=== PATIENT | male | born 1955 | race Caucasian/White ===

== ENCOUNTER → 2017-08-08 14:24 | Outpatient (CLI) | payer OTHER, SELFPAY ==
[2017-08-08 15:48] LABS: PSA,Total - Annual Screen 1.96 ng/mL (0.00-4.00)
== END ==
PROVIDERS: Family Provider Family Medicine; PCP Family Medicine; Visit Provider Family Medicine
DX: N40.0 Benign prostatic hyperplasia without lower urinary tract symptoms (principal); E34.9 Endocrine disorder, unspecified
CPT/HCPCS: 36415; 84153; 84403; G0103

== ENCOUNTER → 2018-03-01 09:15 | Outpatient (CLI) | payer OTHER, SELFPAY ==
[2018-03-01 13:44] LABS: PSA,Total- Diagnostic 2.11 ng/mL (0.0-4.0)
--- OUTSIDE RECORDS SUMMARY | 2018-04-17 05:26 | XMS RPT_ITS ---
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 Values obtained with different assay methods cannot be used interchangably. When changing PSA assays in the course of monitoring a patient, additional sequential testing should be carried out to confirm baseline values. Performed By: #### L501.9940 #### [facility] [address] [place], [address] PSA,TOTAL - ANNUAL Collected: 08/08/2017 Status: F Source: [facility] SCREEN 2:28 PM [facility] [place] TYPE CODE TESTS RESULT OUT OF RANGE REFERENCE UNITS LAB L501.9910 0.00-4.00 ng/mL Normal PSA,TOT 1.96 SCREEN Result Comment: This test was performed using the TPSA assay method for the [employer] chemistry system. Values obtained with different assay methods cannot be used interchangably. When changing PSA assays in the course of monitoring a patient, additional sequential testing should be carried out to confirm baseline values. Performed By: #### L501.9910 #### [facility] [address] [place], [address] TESTOSTERONE, SERUM TOTAL Collected: 08/08/2017 Status: F Source: [facility] 2:28 PM [facility] [place] TYPE CODE TESTS RESULT OUT OF REFERENCE UNITS RANGE LAB L509.3000 ng/dL Testosterone Normal 323.95 Result Comment: NORMAL REFERENCE RANGES MALE AGE <50 123.06 - 813.86 ng/dL MALE AGE >50 89.98 - 780.10 ng/dL FEMALE PREMENOPAUSE AGE 21 - 60 9.01 - 47.94 ng/dL FEMALE POSTMENOPAUSE AGE 45 - 89 <7.00 - 45.62 ng/dL REFERENCE RANGE AND METHODOLOGY CHANGED 03/09/2017 Performed By: #### L509.3000 #### [facility] [address] [place], [address] ALLERGIES ALLERGIES No Allergies Records FoundENCOUNTERS ENCOUNTERS ADMIT/DISCHARGE ACCOUNT ADMITTING ENCOUNTER LOCATION SOURCE NUMBER CLASS 03/01/2018 [id number] Ambulatory [facility] 3 [facility] [place] ing:MFPLAB Repository 08/08/2017 [id number] Ambulatory [facility] 6 [facility] [place] ing:MFPLAB Repository PAYERS PAYERS ENCOUNTER GUARANTOR PAYER SUBSCRIBER SOURCE 03/01/2018 [facility] [id number] Insurance:MEDICAL SlaterDOB: [place] [id number], [place] Number: Repository [id number]: 330 [id number] [phone] () Date:[id number] [address] [address]EU: 03/01/2018 Secondary NOT GIVENUNK [facility] Insurance:SELF PAY [facility] Number: Effective Repository Date:2018-03-01 08/08/2017 [facility] [address] [facility] [address] [facility] [id number] Insurance:MEDICAL SlaterDOB: [facility] [id number] Number: Repository [id number]: 330 [id number] [phone] () Date:[id number] [address]TC: 08/08/2017 Secondary NOT GIVENUNK [place] Insurance:SELF PAY [facility] Number: Effective Repository Date:2017-08-08
== END ==
PROVIDERS: Family Provider Family Medicine; PCP Family Medicine; Visit Provider Family Medicine
DX: N40.0 Benign prostatic hyperplasia without lower urinary tract symptoms (principal)
CPT/HCPCS: 36415; 84153

== ENCOUNTER → 2018-05-19 08:42 | Outpatient (CLI) | payer OTHER, SELFPAY ==
[2018-05-19 10:34] LABS: Anion Gap 6 (5-15); BUN 14 mg/dL (7-18); BUN/Creat Ratio 18.6 RATIO (10-20); Calcium,Total 8.7 mg/dL (8.5-10.1); Chloride 108 mmol/L (98-107); Cholesterol 185 mg/dL (200); Creatinine, Serum 0.75 mg/dL (0.70-1.30); EST Glomerular Filtration Rate 112 mL/min (>60); Est Glom Filt Rate - Afr Amer 135 mL/min (>60); Glucose 79 mg/dL (74-106); High Density Lipoprotein 70 mg/dL; Potassium 4.3 mmol/L (3.5-5.1); Sodium Level 139 mmol/L (136-145); Triglycerides 115 mg/dL; Very Low Density Lipoprotein 23 mg/dL (5-40)
== END ==
PROVIDERS: Family Provider Family Medicine; PCP Family Medicine; Referring Provider Family Medicine; Visit Provider Family Medicine
DX: Z00.00 Encounter for general adult medical examination without abnormal findings (principal); E34.9 Endocrine disorder, unspecified
CPT/HCPCS: 36415; 80048; 80061; 84403

== ENCOUNTER → 2018-05-24 15:53 | Outpatient (CLI) | payer OTHER, SELFPAY ==
--- NOTE | 2018-05-24 15:56 | US_ITS ---
STUDY: SCROTUM ULTRASOUND REASON FOR EXAM: Male, 63 years old. Blood in semen. TECHNIQUE: Ultrasound evaluation of the scrotum was performed with color Doppler and static dupree-scale imaging. COMPARISON: None. FINDINGS: RIGHT TESTICLE The right testis measures 26 x 20 x 14 mm. Normal echotexture and vascularity. A single macrocalcification is present. The right epididymal head measures 8 x 14 x 6 mm, normal echotexture, no epididymal cysts. Small hydrocele. Normal vascularity. No varicocele. LEFT TESTICLE Left testis measures 29 x 18 x 15 mm. Normal echotexture and vascularity. The left epididymal head measures 8 x 9 x 10 mm. Normal vascularity and echotexture. No epididymal head cysts.. No hydrocele or varicocele. US/Testicular with Arterial Flow IMPRESSION: No acute sonographic abnormality is evident of the testes or epididymides. Minimal right hydrocele. Electronically Signed: Dg Mitchell MD at 19:39 EST Tel , Service support ,
== END ==
PROVIDERS: Family Provider Family Medicine; PCP Family Medicine; Referring Provider Family Medicine; Visit Provider Family Medicine
DX: R36.1 Hematospermia (principal)
CPT/HCPCS: 76870; 93976

== ENCOUNTER → 2020-04-14 15:09 | Outpatient (CLI) | payer OTHER, SELFPAY ==
[2020-04-14 18:10] LABS: Anion Gap 7 (5-15); BUN 18 mg/dL (7-18); BUN/Creat Ratio 24.3 RATIO (10-20); Calcium,Total 8.4 mg/dL (8.5-10.1); Chloride 105 mmol/L (98-107); Cholesterol 198 mg/dL (200); Creatinine, Serum 0.74 mg/dL (0.70-1.30); EST Glomerular Filtration Rate 113 mL/min (>60); Est Glom Filt Rate - Afr Amer 137 mL/min (>60); Glucose 100 mg/dL (74-106); High Density Lipoprotein 66 mg/dL; Potassium 3.7 mmol/L (3.5-5.1); Sodium Level 139 mmol/L (136-145); Triglycerides 279 mg/dL; Very Low Density Lipoprotein 56 mg/dL (5-40)
[2020-04-14 18:16] LABS: Vitamin D,25 Hydroxy 17.6 ng/mL
== END ==
PROVIDERS: PCP Family Medicine; Visit Provider Family Medicine
DX: Z00.00 Encounter for general adult medical examination without abnormal findings (principal); E34.9 Endocrine disorder, unspecified; R36.1 Hematospermia
CPT/HCPCS: 36415; 80048; 80061; 82306; 84153; 84403; G0103

== ENCOUNTER → 2020-07-11 14:57 | Outpatient (CLI) | payer OTHER, SELFPAY | PROVIDERS: PCP Family Medicine; Visit Provider Family Medicine | DX: R79.89 Other specified abnormal findings of blood chemistry (principal) | CPT/HCPCS: 36415; 84403 ==

== ENCOUNTER → 2020-10-31 08:41 | Outpatient (CLI) | payer OTHER, SELFPAY ==
[2020-10-31 10:29] LABS: Cholesterol 172 mg/dL (200); High Density Lipoprotein 61 mg/dL; Triglycerides 88 mg/dL; Very Low Density Lipoprotein 18 mg/dL (5-40); Vitamin D,25 Hydroxy 32.3 ng/mL
== END ==
PROVIDERS: PCP Family Medicine; Referring Provider Family Medicine; Visit Provider Family Medicine
DX: E78.5 Hyperlipidemia, unspecified (principal); E55.9 Vitamin D deficiency, unspecified; R79.89 Other specified abnormal findings of blood chemistry
CPT/HCPCS: 36415; 80061; 82306; 84403

== ENCOUNTER → 2021-01-23 08:56 | Outpatient (CLI) | payer OTHER, SELFPAY ==
--- NOTE | 2021-01-23 09:01 | ART_ITS ---
Reason For Study: CLAUDICATION Left Segmental Pressures Left brachial= 160mmHg. Left posterior tibial artery = 187mmHg. Left dorsalis pedis artery = 180mmHg. The left posterior tibial artery waveforms are triphasic. The left dorsalis pedis waveforms are triphasic. Right Segmental Pressures Right brachial= 160mmHg. Right posterior tibial artery = 187mmHg. Right dorsalis pedis artery = 180mmHg. The right posterior tibial artery waveforms are triphasic. The right dorsalis pedis waveforms are triphasic. Indices The right ankle brachial index by the posterior tibial artery is 1.17. The right ankle brachial index by the dorsalis pedis is 1.13. The left ankle brachial index by the posterior tibial artery is 1.17. The left ankle brachial index by the dorsalis pedis is 1.13. VL/Ankle Brachial Index Interpretation Summary Triphasic Doppler waveforms are noted at ankle level bilaterally. Pulse-volume recordings appear satisfactory at ankle level bilaterally. Resting ankle-brachial indices are nor mal bilaterally. There is no evidence of significant arterial occlusive disease in the lower ext remities bilaterally. Ordering Physician: Jere Olmedo Referring Physician: Jere Olmedo Performed By: Katy Richardson RVJessica, RDCS
== END ==
PROVIDERS: PCP Family Medicine; Referring Provider Family Medicine; Visit Provider Family Medicine
DX: I73.9 Peripheral vascular disease, unspecified (principal)
CPT/HCPCS: 93922

== ENCOUNTER 2021-04-17 08:53 | Outpatient (CLI) | payer OTHER, SELFPAY ==
[2021-04-17 10:10] LABS: ALB/GLOB Ratio 1.2 RATIO (0.9-2.4); AST(SGOT) 23 U/L (15-37); Alanine Aminotransfer ALT/SGPT 46 U/L (16-61); Albumin, Serum 3.7 g/dL (3.2-5.0); Alkaline Phosphatase 60 U/L (45-117); Anion Gap 6 (5-15); BUN 13 mg/dL (7-18); BUN/Creat Ratio 19.4 RATIO (10-20); Calcium,Total 8.9 mg/dL (8.5-10.1); Chloride 105 mmol/L (98-107); Creatinine, Serum 0.67 mg/dL (0.70-1.30); EST Glomerular Filtration Rate 127 mL/min (>60); Est Glom Filt Rate - Afr Amer 153 mL/min (>60); Glucose 90 mg/dL (74-106); Potassium 4.4 mmol/L (3.5-5.1); Protein, Total 6.7 g/dL (6.4-8.2); Sodium Level 138 mmol/L (136-145)
== END 2021-04-17 23:59 | disposition short-term general hospital (02) ==
PROVIDERS: PCP Family Medicine; Referring Provider Family Medicine; Visit Provider Family Medicine
DX: E78.5 Hyperlipidemia, unspecified (principal); R79.89 Other specified abnormal findings of blood chemistry
CPT/HCPCS: 36415; 80053; 84403

== ENCOUNTER → 2021-10-21 | Outpatient (CLI) | payer OTHER, SELFPAY ==
[2021-10-21 10:17] LABS: Anion Gap 4 (5-15); BUN 18 mg/dL (7-18); BUN/Creat Ratio 24.3 RATIO (10-20); Chloride 108 mmol/L (98-107); Creatinine, Serum 0.74 mg/dL (0.70-1.30); EST Glomerular Filtration Rate 113 mL/min (>60); Est Glom Filt Rate - Afr Amer 137 mL/min (>60); Glucose 96 mg/dL (74-106); Potassium 4.5 mmol/L (3.5-5.1); Sodium Level 136 mmol/L (136-145)
== END | disposition home or self-care (01) ==
LOC: MFPLAB 08:31
PROVIDERS: PCP Family Medicine; Referring Provider Family Medicine; Visit Provider Family Medicine
DX: R79.89 Other specified abnormal findings of blood chemistry (principal); E78.5 Hyperlipidemia, unspecified
CPT/HCPCS: 36415; 80048; 84403

== ENCOUNTER → 2022-04-23 | Outpatient (CLI) | payer OTHER, SELFPAY ==
[2022-04-23 09:57] LABS: Absolute Lymphocyte Count 1.34 X10^3/uL (0.83-4.51); Absolute Neutrophil Count 3.9 X10^3/uL (2.0-7.7); Basophil# 0.04 X10^3/uL; Basophil% 0.7 % (0-1); Eosinophil# 0.06 X10^3/uL; Hematocrit 54.7 % (40-54); Lymphocyte # 1.34 X10^3/ul (0.83-4.51); Lymphocyte % 22.8 % (19-41); Mean Corp Hgb Conc 34.6 g/dL (32-36); Mean Corpuscular Hgb 30.9 pg (27.0-32.0); Mean Corpuscular Volume 89.4 fL (80-94); Mean Platelet Vol. 10.3 fl (6.2-12.0); Monocyte# 0.47 X10^3/uL; NRBC Flagged by Analyzer 0 % (0-5); Neutrophil # 3.93 X10^3/uL (2.7-7.7); Platelet Count 223 K/mm3 (150-450); RBC Distribution Width CV 12.9 % (11.6-14.6); RBC Distribution Width SD 41.9 fl (35.1-43.9); Red Blood Count 6.12 M/mm3 (4.6-6.2); White Blood Count 5.9 K/mm3 (4.4-11.0)
[2022-04-23 10:08] LABS: Differential Indicated SCAN CRITERIA MET; Hemoglobin 18.9 g/dL (13.0-16.5)
[2022-04-23 10:48] LABS: Anion Gap 9 (5-15); BUN 13 mg/dL (7-18); BUN/Creat Ratio 18.2 RATIO (10-20); Calcium,Total 9.5 mg/dL (8.5-10.1); Chloride 105 mmol/L (98-107); Creatinine, Serum 0.72 mg/dL (0.70-1.30); EST Glomerular Filtration Rate 117 mL/min (>60); Est Glom Filt Rate - Afr Amer 142 mL/min (>60); Glucose 97 mg/dL (74-106); PSA,Total- Diagnostic 4.28 ng/mL (0.0-4.0); Potassium 4.1 mmol/L (3.5-5.1); Sodium Level 139 mmol/L (136-145)
[2022-04-27 09:33] LABS: Pathologist Review Reviewed
== END | disposition home or self-care (01) ==
LOC: MFPLAB 08:39
PROVIDERS: PCP Family Medicine; Referring Provider Family Medicine; Visit Provider Family Medicine
DX: R79.89 Other specified abnormal findings of blood chemistry (principal)
CPT/HCPCS: 36415; 80048; 84153; 84403; 85025

== ENCOUNTER → 2022-06-04 | Outpatient (CLI) | payer OTHER, SELFPAY ==
[2022-06-04 14:59] LABS: Absolute Lymphocyte Count 1.38 X10^3/uL (0.83-4.51); Absolute Neutrophil Count 4.3 X10^3/uL (2.0-7.7); Basophil# 0.05 X10^3/uL; Basophil% 0.8 % (0-1); Eosinophil# 0.09 X10^3/uL; Eosinophils% 1.4 % (0-5); Hematocrit 54.4 % (40-54); Lymphocyte # 1.38 X10^3/ul (0.83-4.51); Lymphocyte % 21.4 % (19-41); Mean Corp Hgb Conc 33.1 g/dL (32-36); Mean Corpuscular Volume 93.8 fL (80-94); Mean Platelet Vol. 10.7 fl (6.2-12.0); Monocyte# 0.58 X10^3/uL; NRBC Flagged by Analyzer 0 % (0-5); Neutrophil # 4.32 X10^3/uL (2.7-7.7); Neutrophil % 66.9 % (47-70); Platelet Count 216 K/mm3 (150-450); RBC Distribution Width CV 13.1 % (11.6-14.6); RBC Distribution Width SD 44.8 fl (35.1-43.9); White Blood Count 6.5 K/mm3 (4.4-11.0)
[2022-06-08 08:52] LABS: Pathologist Review Reviewed
== END | disposition home or self-care (01) ==
LOC: MTLAB 13:06
PROVIDERS: PCP Family Medicine; Referring Provider Family Medicine; Visit Provider Family Medicine
DX: E34.9 Endocrine disorder, unspecified (principal)
CPT/HCPCS: 36415; 85025

== ENCOUNTER → 2022-06-18 | Outpatient (CLI) | payer OTHER, SELFPAY ==
[2022-06-18 12:12] LABS: Absolute Lymphocyte Count 1.23 X10^3/uL (0.83-4.51); Absolute Neutrophil Count 4.4 X10^3/uL (2.0-7.7); Basophil# 0.05 X10^3/uL; Basophil% 0.8 % (0-1); Eosinophil# 0.08 X10^3/uL; Eosinophils% 1.3 % (0-5); Hematocrit 50.9 % (40-54); Hemoglobin 17.2 g/dL (13.0-16.5); Lymphocyte # 1.23 X10^3/ul (0.83-4.51); Lymphocyte % 19.5 % (19-41); Mean Corp Hgb Conc 33.8 g/dL (32-36); Mean Corpuscular Hgb 31.3 pg (27.0-32.0); Mean Corpuscular Volume 92.7 fL (80-94); Mean Platelet Vol. 10.8 fl (6.2-12.0); Monocyte# 0.56 X10^3/uL; Monocyte% 8.9 % (0-10); NRBC Flagged by Analyzer 0 % (0-5); Neutrophil # 4.37 X10^3/uL (2.7-7.7); Neutrophil % 69.2 % (47-70); Platelet Count 243 K/mm3 (150-450); RBC Distribution Width CV 13.1 % (11.6-14.6); RBC Distribution Width SD 44.7 fl (35.1-43.9); Red Blood Count 5.49 M/mm3 (4.6-6.2); White Blood Count 6.3 K/mm3 (4.4-11.0)
== END | disposition home or self-care (01) ==
LOC: MFPLAB 10:08
PROVIDERS: PCP Family Medicine; Referring Provider Family Medicine; Visit Provider Family Medicine
DX: I73.9 Peripheral vascular disease, unspecified (principal)
CPT/HCPCS: 36415; 85025

== ENCOUNTER → 2022-09-17 | Outpatient (CLI) | payer OTHER, SELFPAY ==
[2022-09-17 11:17] LABS: Absolute Lymphocyte Count 1.02 X10^3/uL (0.83-4.51); Absolute Neutrophil Count 3.8 X10^3/uL (2.0-7.7); Basophil# 0.05 X10^3/uL; Basophil% 0.9 % (0-1); Eosinophil# 0.05 X10^3/uL; Eosinophils% 0.9 % (0-5); Hematocrit 55.4 % (40-54); Lymphocyte # 1.02 X10^3/ul (0.83-4.51); Lymphocyte % 18.8 % (19-41); Mean Corp Hgb Conc 33.6 g/dL (32-36); Mean Corpuscular Hgb 31.4 pg (27.0-32.0); Mean Corpuscular Volume 93.6 fL (80-94); Mean Platelet Vol. 10.9 fl (6.2-12.0); Monocyte# 0.44 X10^3/uL; Monocyte% 8.1 % (0-10); NRBC Flagged by Analyzer 0 % (0-5); Neutrophil # 3.84 X10^3/uL (2.7-7.7); Neutrophil % 70.9 % (47-70); Platelet Count 227 K/mm3 (150-450); RBC Distribution Width CV 11.9 % (11.6-14.6); RBC Distribution Width SD 41.1 fl (35.1-43.9); Red Blood Count 5.92 M/mm3 (4.6-6.2); White Blood Count 5.4 K/mm3 (4.4-11.0)
[2022-09-17 11:39] LABS: Differential Indicated SCAN CRITERIA MET; Hemoglobin 18.6 g/dL (13.0-16.5)
[2022-09-17 11:58] LABS: PSA,Total- Diagnostic 4.02 ng/mL (0.0-4.0)
[2022-09-20 10:01] LABS: Pathologist Review Reviewed
== END | disposition home or self-care (01) ==
LOC: MFPLAB 09:19
PROVIDERS: PCP Family Medicine; Visit Provider Family Medicine
DX: E34.9 Endocrine disorder, unspecified (principal)
CPT/HCPCS: 36415; 84153; 84403; 85025

== ENCOUNTER → 2022-10-07 | Outpatient (CLI) | payer OTHER, SELFPAY ==
[2022-10-07 17:56] LABS: Absolute Lymphocyte Count 1.09 X10^3/uL (0.83-4.51); Absolute Neutrophil Count 5.9 X10^3/uL (2.0-7.7); Basophil# 0.06 X10^3/uL; Basophil% 0.8 % (0-1); Eosinophil# 0.06 X10^3/uL; Eosinophils% 0.8 % (0-5); Hematocrit 52.3 % (40-54); Hemoglobin 17.2 g/dL (13.0-16.5); Lymphocyte # 1.09 X10^3/ul (0.83-4.51); Lymphocyte % 14.2 % (19-41); Mean Corp Hgb Conc 32.9 g/dL (32-36); Mean Corpuscular Hgb 30.8 pg (27.0-32.0); Mean Corpuscular Volume 93.6 fL (80-94); Mean Platelet Vol. 10.6 fl (6.2-12.0); Monocyte# 0.55 X10^3/uL; Monocyte% 7.2 % (0-10); NRBC Flagged by Analyzer 0 % (0-5); Neutrophil # 5.89 X10^3/uL (2.7-7.7); Neutrophil % 76.7 % (47-70); Platelet Count 236 K/mm3 (150-450); RBC Distribution Width CV 12.1 % (11.6-14.6); RBC Distribution Width SD 42.1 fl (35.1-43.9); Red Blood Count 5.59 M/mm3 (4.6-6.2); White Blood Count 7.7 K/mm3 (4.4-11.0)
[2022-10-07 18:29] LABS: Follicle Stimulating Hormone 1.9 mIU/mL; Luteinizing Hormone 0.3 mIU/mL
== END | disposition home or self-care (01) ==
LOC: MFPLAB 16:00
PROVIDERS: PCP Family Medicine; Visit Provider Family Medicine
DX: E34.9 Endocrine disorder, unspecified (principal); I10 Essential (primary) hypertension
CPT/HCPCS: 36415; 83001; 83002; 84403; 85025

== ENCOUNTER → 2023-01-06 | Outpatient (CLI) | payer OTHER, SELFPAY ==
[2023-01-06 17:42] LABS: Absolute Lymphocyte Count 1.38 X10^3/uL (0.83-4.51); Absolute Neutrophil Count 3.8 X10^3/uL (2.0-7.7); Basophil# 0.05 X10^3/uL; Basophil% 0.8 % (0-1); Eosinophil# 0.08 X10^3/uL; Eosinophils% 1.3 % (0-5); Hematocrit 48.7 % (40-54); Hemoglobin 16.6 g/dL (13.0-16.5); Lymphocyte # 1.38 X10^3/ul (0.83-4.51); Mean Corp Hgb Conc 34.1 g/dL (32-36); Mean Corpuscular Hgb 31.1 pg (27.0-32.0); Mean Corpuscular Volume 91.4 fL (80-94); Mean Platelet Vol. 10.7 fl (6.2-12.0); Monocyte# 0.66 X10^3/uL; NRBC Flagged by Analyzer 0 % (0-5); Neutrophil # 3.81 X10^3/uL (2.7-7.7); Neutrophil % 63.6 % (47-70); Platelet Count 254 K/mm3 (150-450); RBC Distribution Width CV 12.8 % (11.6-14.6); RBC Distribution Width SD 42.6 fl (35.1-43.9); Red Blood Count 5.33 M/mm3 (4.6-6.2)
[2023-01-06 18:10] LABS: PSA,Total- Diagnostic 8.21 ng/mL (0.0-4.0)
== END | disposition home or self-care (01) ==
LOC: MFPLAB 16:21
PROVIDERS: PCP Family Medicine; Visit Provider Family Medicine
DX: E34.9 Endocrine disorder, unspecified (principal); F10.10 Alcohol abuse, uncomplicated
CPT/HCPCS: 36415; 84153; 84403; 85025

== ENCOUNTER → 2023-02-04 | Outpatient (CLI) | payer MEDICARE, SELFPAY ==
--- NOTE | 2023-02-04 08:10 | CT_ITS ---
STUDY: CT ABDOMEN AND PELVIS WITH CONTRAST REASON FOR EXAM: Male, 68 years old. MICRO HEMATURIA. BPH. RADIATION DOSAGE (If Supplied By Facility): CTDIvol = ( 17.18 ) mGy, DLP = ( 2023.10 ) mGycm TECHNIQUE: Transaxial images were obtained from the dome of the diaphragm to the symphysis pubis without oral contrast. IV 100mL Isovue-300 was administered. Sagittal and coronal images were reconstructed. Individualized dose optimization techniques were used for this CT. COMPARISON: None. FINDINGS: The visualized lung bases are unremarkable. The visualized portions of the heart are within normal limits. Small intrahepatic cysts. Normal gallbladder and extrahepatic biliary system. Calcified granuloma in the posterior aspect of the spleen. Normal pancreas. Normal bilateral adrenal glands. There is a 1.3 cm nonobstructive calculus in the lower pole calyx of the right kidney. Normal left kidney. The stomach is distended with residual food particles. Normal small intestine. There are scattered colonic diverticula consistent with diverticulosis. The appendix is visualized and appears normal. There is scattered atherosclerotic calcification of the abdominal aorta and its major visceral branches, without a demonstrated aneurysm. Normal inferior vena cava. Normal retroperitoneum. Normal urinary bladder. There is enlargement of the prostate gland. The prostate measures 6 cm x 5.9 cm. There is a right-sided inguinal hernia containing adipose tissue. There are degenerative changes of the visualized lumbar spine, worse at the L5-S1 level. CT/Abdomen/Pelvis W IV Cont ONLY IMPRESSION: Small intrahepatic cysts. Calcified granuloma in the posterior aspect of the spleen. 1.3 cm nonobstructive calculus in the lower pole calyx of the right kidney. Fatty infiltration of the liver. Prostatic enlargement with indentation at the bladder base. Scattered sigmoid diverticula. Electronically Signed: Alejandro Garner MD at 14:45 EST ,
[2023-02-04 08:37] LABS: CREATININE FINGERSTICK < 0.9 mg/dL (0.70-1.30); EGFR FINGERSTICK > 60.0000 mL/min (>60)
== END | disposition home or self-care (01) ==
PROVIDERS: PCP Family Medicine; Referring Provider Urology; Visit Provider Urology
DX: R31.21 Asymptomatic microscopic hematuria (principal)
CPT/HCPCS: 74177; Q9967

== ENCOUNTER → 2023-03-04 | Outpatient (CLI) | payer MEDICARE, SELFPAY ==
[2023-03-04 15:27] LABS: Absolute Lymphocyte Count 1.33 X10^3/uL (0.83-4.51); Absolute Neutrophil Count 6.5 X10^3/uL (2.0-7.7); Basophil# 0.05 X10^3/uL; Basophil% 0.6 % (0-1); Eosinophil# 0.04 X10^3/uL; Eosinophils% 0.5 % (0-5); Hematocrit 50.2 % (40-54); Hemoglobin 17.2 g/dL (13.0-16.5); Lymphocyte # 1.33 X10^3/ul (0.83-4.51); Lymphocyte % 15.8 % (19-41); Mean Corp Hgb Conc 34.3 g/dL (32-36); Mean Corpuscular Hgb 31.3 pg (27.0-32.0); Mean Corpuscular Volume 91.4 fL (80-94); Mean Platelet Vol. 10.4 fl (6.2-12.0); Monocyte# 0.53 X10^3/uL; Monocyte% 6.3 % (0-10); NRBC Flagged by Analyzer 0 % (0-5); Neutrophil # 6.45 X10^3/uL (2.7-7.7); Neutrophil % 76.4 % (47-70); Platelet Count 244 K/mm3 (150-450); RBC Distribution Width CV 11.9 % (11.6-14.6); Red Blood Count 5.49 M/mm3 (4.6-6.2); White Blood Count 8.4 K/mm3 (4.4-11.0)
[2023-03-04 15:52] LABS: Follicle Stimulating Hormone 6.7 mIU/mL; Luteinizing Hormone 1.5 mIU/mL
[2023-03-07 12:08] LABS: PSA, Free 1.74 ng/mL; PSA, Free % 25.1 % (.)
== END | disposition home or self-care (01) ==
LOC: LAB 14:57
PROVIDERS: PCP Family Medicine; Referring Provider Urology; Visit Provider Urology
DX: R97.20 Elevated prostate specific antigen [PSA] (principal); E34.9 Endocrine disorder, unspecified; I10 Essential (primary) hypertension
CPT/HCPCS: 36415; 83001; 83002; 84153; 84154; 84403; 85025

== ENCOUNTER → 2023-06-09 | Outpatient (CLI) | payer MEDICARE, SELFPAY ==
[2023-06-09 17:43] LABS: Absolute Lymphocyte Count 1.59 X10^3/uL (0.83-4.51); Absolute Neutrophil Count 5.1 X10^3/uL (2.0-7.7); Basophil# 0.08 X10^3/uL; Basophil% 1.1 % (0-1); Eosinophil# 0.08 X10^3/uL; Eosinophils% 1.1 % (0-5); Hematocrit 47.3 % (40-54); Hemoglobin 15.2 g/dL (13.0-16.5); Lymphocyte # 1.59 X10^3/ul (0.83-4.51); Lymphocyte % 21.3 % (19-41); Mean Corp Hgb Conc 32.1 g/dL (32-36); Mean Corpuscular Hgb 28.4 pg (27.0-32.0); Mean Corpuscular Volume 88.2 fL (80-94); Monocyte# 0.66 X10^3/uL; Monocyte% 8.8 % (0-10); NRBC Flagged by Analyzer 0 % (0-5); Neutrophil # 5.05 X10^3/uL (2.7-7.7); Neutrophil % 67.4 % (47-70); Platelet Count 293 K/mm3 (150-450); RBC Distribution Width CV 12.2 % (11.6-14.6); RBC Distribution Width SD 39.8 fl (35.1-43.9); Red Blood Count 5.36 M/mm3 (4.6-6.2); White Blood Count 7.5 K/mm3 (4.4-11.0)
[2023-06-09 17:50] LABS: PSA,Total- Diagnostic 5.44 ng/mL (0.0-4.0)
== END | disposition home or self-care (01) ==
LOC: MFPLAB 14:52
PROVIDERS: PCP Family Medicine; Visit Provider Family Medicine
DX: E29.1 Testicular hypofunction (principal)
CPT/HCPCS: 36415; 84153; 84403; 85025

== ENCOUNTER → 2023-08-23 | Outpatient (CLI) | payer MEDICARE, SELFPAY ==
[2023-08-23 09:38] LABS: Hematocrit 50.4 % (40-54); Mean Corp Hgb Conc 31.7 g/dL (32-36); Mean Corpuscular Volume 85.1 fL (80-94); Mean Platelet Vol. 10.2 fl (6.2-12.0); Platelet Count 250 K/mm3 (150-450); RBC Distribution Width CV 13.8 % (11.6-14.6); RBC Distribution Width SD 42.3 fl (35.1-43.9); Red Blood Count 5.92 M/mm3 (4.6-6.2); White Blood Count 6.3 K/mm3 (4.4-11.0)
[2023-08-24 13:08] LABS: PSA, Free 1.62 ng/mL; PSA, Free % 32.1 % (.)
== END | disposition home or self-care (01) ==
LOC: LAB 09:00
PROVIDERS: PCP Family Medicine; Visit Provider Urology
DX: R97.20 Elevated prostate specific antigen [PSA] (principal); E29.1 Testicular hypofunction
CPT/HCPCS: 36415; 84153; 84154; 85027

== ENCOUNTER → 2023-12-08 | Outpatient (CLI) | payer MEDICARE, SELFPAY ==
[2023-12-08 12:43] LABS: Absolute Lymphocyte Count 1.12 X10^3/uL (0.83-4.51); Basophil# 0.03 X10^3/uL; Basophil% 0.5 % (0-1); Eosinophil# 0.06 X10^3/uL; Hematocrit 46.7 % (40-54); Hemoglobin 15.4 g/dL (13.0-16.5); Lymphocyte # 1.12 X10^3/ul (0.83-4.51); Lymphocyte % 19.5 % (19-41); Mean Corpuscular Hgb 27.8 pg (27.0-32.0); Mean Corpuscular Volume 84.3 fL (80-94); Mean Platelet Vol. 11.3 fl (6.2-12.0); Monocyte# 0.55 X10^3/uL; Monocyte% 9.6 % (0-10); NRBC Flagged by Analyzer 0 % (0-5); Neutrophil # 3.95 X10^3/uL (2.7-7.7); Neutrophil % 69.1 % (47-70); Platelet Count 247 K/mm3 (150-450); RBC Distribution Width CV 14.5 % (11.6-14.6); Red Blood Count 5.54 M/mm3 (4.6-6.2); White Blood Count 5.7 K/mm3 (4.4-11.0)
[2023-12-08 13:03] LABS: ALB/GLOB Ratio 1.1 RATIO (0.9-2.4); AST(SGOT) 23 U/L (15-37); Alanine Aminotransfer ALT/SGPT 31 U/L (16-61); Albumin, Serum 3.5 g/dL (3.2-5.0); Alkaline Phosphatase 55 U/L (45-117); Anion Gap 5 (5-15); BUN 15 mg/dL (7-18); Calcium,Total 9.1 mg/dL (8.5-10.1); Chloride 106 mmol/L (98-107); Cholesterol 186 mg/dL (200); Creatinine, Serum 0.68 mg/dL (0.70-1.30); EST Glomerular Filtration Rate 123 mL/min (>60); Est Glom Filt Rate - Afr Amer 149 mL/min (>60); Globulin 3.3 g/dL (2.2-4.2); Glucose 157 mg/dL (74-106); High Density Lipoprotein 82 mg/dL; Protein, Total 6.8 g/dL (6.4-8.2); Sodium Level 136 mmol/L (136-145); Triglycerides 208 mg/dL; Very Low Density Lipoprotein 42 mg/dL (5-40)
== END | disposition home or self-care (01) ==
LOC: MFPLAB 10:36
PROVIDERS: PCP Family Medicine; Visit Provider Family Medicine
DX: I10 Essential (primary) hypertension (principal); E29.1 Testicular hypofunction
CPT/HCPCS: 36415; 80053; 80061; 84403; 85025

== ENCOUNTER → 2024-03-08 | Outpatient (CLI) | payer MEDICARE, SELFPAY ==
[2024-03-08 12:32] LABS: Absolute Lymphocyte Count 1.03 X10^3/uL (0.83-4.51); Basophil# 0.06 X10^3/uL; Basophil% 0.9 % (0-1); Eosinophil# 0.08 X10^3/uL; Eosinophils% 1.2 % (0-5); Hematocrit 49.1 % (40-54); Hemoglobin 16.2 g/dL (13.0-16.5); Lymphocyte # 1.03 X10^3/ul (0.83-4.51); Lymphocyte % 14.9 % (19-41); Mean Corpuscular Hgb 27.9 pg (27.0-32.0); Mean Corpuscular Volume 84.7 fL (80-94); Mean Platelet Vol. 11.1 fl (6.2-12.0); Monocyte# 0.69 X10^3/uL; NRBC Flagged by Analyzer 0 % (0-5); Neutrophil # 5.03 X10^3/uL (2.7-7.7); Neutrophil % 72.6 % (47-70); Platelet Count 254 K/mm3 (150-450); RBC Distribution Width CV 14.6 % (11.6-14.6); RBC Distribution Width SD 44.8 fl (35.1-43.9); White Blood Count 6.9 K/mm3 (4.4-11.0)
[2024-03-08 12:45] LABS: AST(SGOT) 23 U/L (15-37); Alanine Aminotransfer ALT/SGPT 27 U/L (16-61); Albumin, Serum 3.6 g/dL (3.2-5.0); Alkaline Phosphatase 57 U/L (45-117); Anion Gap 4 (5-15); BUN 14 mg/dL (7-18); BUN/Creat Ratio 19.1 RATIO (10-20); Calcium,Total 8.7 mg/dL (8.5-10.1); Chloride 104 mmol/L (98-107); Cholesterol 198 mg/dL (200); Creatinine, Serum 0.73 mg/dL (0.70-1.30); EST Glomerular Filtration Rate 113 mL/min (>60); Est Glom Filt Rate - Afr Amer 137 mL/min (>60); Globulin 3.6 g/dL (2.2-4.2); Glucose 102 mg/dL (74-106); High Density Lipoprotein 74 mg/dL; PSA,Total- Diagnostic 6.57 ng/mL (0.0-4.0); Potassium 4.2 mmol/L (3.5-5.1); Protein, Total 7.2 g/dL (6.4-8.2); Sodium Level 135 mmol/L (136-145); Triglycerides 245 mg/dL; Very Low Density Lipoprotein 49 mg/dL (5-40)
== END | disposition home or self-care (01) ==
LOC: MFPLAB 10:24
PROVIDERS: PCP Family Medicine; Referring Provider Family Medicine; Visit Provider Family Medicine
DX: I10 Essential (primary) hypertension (principal); E29.1 Testicular hypofunction; R97.20 Elevated prostate specific antigen [PSA]
CPT/HCPCS: 36415; 80053; 80061; 84153; 84403; 85025

== ENCOUNTER → 2024-06-22 | Outpatient (CLI) | payer MEDICARE, OTHER, SELFPAY ==
[2024-06-22 17:49] LABS: Absolute Lymphocyte Count 1.65 X10^3/uL (0.83-4.51); Absolute Neutrophil Count 4.6 X10^3/uL (2.0-7.7); Basophil# 0.04 X10^3/uL; Basophil% 0.6 % (0-1); Eosinophil# 0.06 X10^3/uL; Eosinophils% 0.9 % (0-5); Hemoglobin 15.4 g/dL (13.0-16.5); Lymphocyte # 1.65 X10^3/ul (0.83-4.51); Lymphocyte % 23.5 % (19-41); Mean Corp Hgb Conc 32.8 g/dL (32-36); Mean Corpuscular Hgb 27.3 pg (27.0-32.0); Mean Corpuscular Volume 83.2 fL (80-94); Monocyte# 0.64 X10^3/uL; Monocyte% 9.1 % (0-10); NRBC Flagged by Analyzer 0 % (0-5); Neutrophil # 4.62 X10^3/uL (2.7-7.7); Neutrophil % 65.6 % (47-70); Platelet Count 268 K/mm3 (150-450); RBC Distribution Width CV 14.7 % (11.6-14.6); RBC Distribution Width SD 44.6 fl (35.1-43.9); Red Blood Count 5.65 M/mm3 (4.6-6.2)
[2024-06-22 19:11] LABS: ALB/GLOB Ratio 1.6 RATIO (0.9-2.4); AST(SGOT) 31 U/L (<=37); Alanine Aminotransfer ALT/SGPT 34 U/L (<=46); Albumin, Serum 4.4 g/dL (3.4-4.8); Alkaline Phosphatase 62 U/L (40-129); Anion Gap 15 (5-15); BUN 14 mg/dL (4-19); BUN/Creat Ratio 18.4 RATIO (10-20); Calcium,Total 9.4 mg/dL (7.6-11.0); Chloride 103 mmol/L (98-108); Cholesterol 204 mg/dL (<=200); Creatinine, Serum 0.75 mg/dL (0.70-1.20); EST Glomerular Filtration Rate 99 (>60); Globulin 2.8 g/dL (2.2-4.2); Glucose 89 mg/dL (70-99); High Density Lipoprotein 97 mg/dL; Low Density Lipoprotein Calc. 91 mg/dL; PSA,Total- Diagnostic 6.18 ng/mL (0.00-4.00); Potassium 3.9 mmol/L (3.3-5.1); Protein, Total 7.3 g/dL (5.9-8.4); Sodium Level 137 mmol/L (133-145); Total Bilirubin 0.75 mg/dL (0.00-1.30); Triglycerides 78 mg/dL; Very Low Density Lipoprotein 16 mg/dL (5-40)
== END | disposition home or self-care (01) ==
LOC: MFPLAB 15:10
PROVIDERS: PCP Family Medicine; Referring Provider Family Medicine; Visit Provider Family Medicine
DX: E29.1 Testicular hypofunction (principal); I10 Essential (primary) hypertension
CPT/HCPCS: 36415; 80053; 80061; 84153; 84402; 84403; 85025

== ENCOUNTER → 2024-10-04 | Outpatient (CLI) | payer MEDICARE, OTHER, SELFPAY ==
[2024-10-04 13:03] LABS: AST(SGOT) 26 U/L (<=37); Alanine Aminotransfer ALT/SGPT 15 U/L (<=46); Albumin, Serum 4.2 g/dL (3.4-4.8); Alkaline Phosphatase 71 U/L (40-129); Anion Gap 11 (5-15); BUN 15 mg/dL (4-19); BUN/Creat Ratio 23.0 RATIO (10-20); Calcium,Total 9.4 mg/dL (7.6-11.0); Carbon Dioxide 24.7 mmol/L (21.0-32.0); Chloride 101 mmol/L (98-108); Globulin 2.7 g/dL (2.2-4.2); Glucose 94 mg/dL (70-99); Potassium 4.6 mmol/L (3.3-5.1)
--- OUTSIDE RECORDS SUMMARY | 2024-10-04 18:57 | XMS RPT_ITS | CCD ---
Author Organization [facility] Inform ion Partnership [facility] Care Team Providers Care Motor Boss Name Role Phone No, Physician Primary Care Provider UnavailADALGISA Khalil Attending Unavailable MORGAN, SABI PABON Admitting Unavailab SABI Watkins Referring Unavailab le KESHAWN, PHYSICIAN Primary Care Unavailable NO, PHYSICIAN Primary Care Unavailable CHINA CRUZ Attending Unavailable Honorio HIDALGO, Dr. Oquendo Primary Care Provider Honorio HIDALGO, Dr. Oquendo Attending Provider Honorio HIDALGO, Dr. Oquendo Referring Provider Jere Vinson Primary Care Unavailable Honorio, Jere Attending Unavailable Honorio, Jere Attending Unavailable Honorio, Jere Referring Unavailable Honorio, Jere Primary Care Unavailable Honorio, Jere Attending Unavailable Honorio, Jere Referring Unavailable Honorio, Jere Primary Care Unavailable Jere Vinson Primary Care Unavailable Rikki Aceves Attending Unavailable Jere Vinson MD Primary Care Provider JERE VINSON Primary Care Unavailable VITALIY PALACIO Referring Unavaila ble JERE VINSON Primary Care Unavailable NEALMVITALIY Attending Unavaila ble SELF Referring Unavailable JERE VINSON Primary Care Unavailable Allergies Allergy Classification Reported Allergen(s) Allergy Type Date of Onset Reaction(s) Facility (2 sources) cold medications [Other] Propensity to adverse reactions 7 Shortness of Breath [facility] (1 source) OTHER; Translations: [OTHER] Propensity to adverse reactions (disorder) 7 [facility] Repository Medications Current Medications Medication Drug Class(es) Dates Sig (Normalized) Sig (Original) aspirin 81 mg delayed release oral tablet (2 sources) Platelet Aggregation Inhibitor, Nonsteroidal Anti-inflammatory Drug Start: 02-18-2012 take 1 tablet by mouth once daily aspirin, enteric coated (ASPIR-LOW) 81 mg EC tablet Take 1 tablet by mouth once daily. 2 tablet 0 02/18/2012 Active celery allergenic extract (2 sources) Non-Standardized Food Allergenic Extract CELERY Active cholecalciferol 0.025 mg oral capsule (2 sources) Vitamin D Start: 02-18-2012 take 1 capsule by mouth once daily Cholecalciferol, Vitamin D3, 1,000 unit cap Take 1 capsule by mouth once daily. 0 02/18/2012 Active cyanocobalamin, vitamin B-12, (VITAMIN B-12 ORAL) (2 sources) cyanocobalamin, vitamin B-12, (VITAMIN B-12 ORAL) Take by mouth. Active folic acid 1 mg oral tablet (2 sources) Start: 02-18-2012 take 1 tablet by mouth once daily folic acid 1 mg tablet Take 1 tablet by mouth once daily. 0 02/18/2012 Active Garlic preparation (2 sources) Non-Standardized Food Allergenic Extract GARLIC EXTRACT ORAL Take by mouth. Active latanoprost 0.05 mg/ml ophthalmic solution (2 sources) Prostaglandin Analog Start: 07-12-2024 take 1 drop(s) into the eye(s) once daily latanoprost (XALATAN) 0.005 % ophthalmic solution Use 1 drop in both eyes once daily. 07/12/2024 Active lisinopril 5 mg oral tablet (2 sources) Angiotensin Converting Enzyme Inhibitor Start: 05-18-2024 take 1 tablet by mouth once daily lisinopril (ZESTRIL) 5 mg tablet Take 1 tablet by mouth once daily. 05/18/2024 Active 1 ml testosterone cypionate 200 mg/ml injection (2 sources) Androgen Start: 06-22-2024 inject 200 mg by intramuscular injection two times weekly testosterone cypionate (DEPO-TESTOSTERONE) 200 mg/mL injection Inject 200 mg intramuscularly two times a week. 06/22/2024 Active Problems Active Problems Problem Classification Problem Date Documented Da te Episodic/Chronic Essential hypertension (1 source) Essential (primary) hypertension; Translations: [Essential (primary) hypertension] Onset: 04-12-2024 Chronic Gastrointestinal hemorrhage (2 sources) Hemorrhage of rectum and anus; Translations: [Hemorrhage of anus and rectum] 07-17-2024 Episodic Other endocrine disorders (2 sources) Testicular hypofunction; Translations: [Testicular hypofunction] Onset: 06-27-2024 Chronic Other endocrine disorders (1 source) Male hypogonadism; Translations: [Testicular hypofunction] 07-17-2024 Chronic Past or Other Problems Problem Classification Problem Date Documented Da te Episodic/Chronic Anal and rectal conditions (2 sources) Anal fistula; Translations: [Anal fistula] Onset: 12-09-2005 07-17-2024 Episodic Other inflammatory condition of skin (2 sources) Pruritus ani; Translations: [Pruritus ani] Onset: 12-09-2005 07-17-2024 Episodic Other screening for suspected conditions (not mental disorders or infectious disease) (1 source) Elevated prostate specific antigen [PSA]; Translations: [Elevated prostate specific antigen [PSA]] Onset: 08-29-2023 Episodic Results Test Name Value Interpretation Reference Range Facility [facility] 07-30-2024 CNNURSE Nurse Visit (ENWSTR) -- RANCHO GARZON ([id number]) 1955 M Date Time Provider Department 07/30/24 9:30 AM NURSE KADIE [facility] WSTR ENWSTR During your visit today, we recorded the following information about you: Angie Perez RN 07/30/2024 9:42 AM Signed Please reach out through [employer] or call the office if you have any further questions and/or concerns regarding giving yourself IM injections of testosterone in your thigh. Angie Perez RN 07/30/2024 9:59 AM Signed AMBULATORY PATIENT EDUCATION NOTE READINESS TO LEARN COGNITIVE ABILITY: Alert and oriented MOTIVATION TO LEARN: Eager Interested FAMILY SUPPORT: Unable to assess - Family not present INSTRUCTION PROVIDED TO: Patient PATIENT LEARNS BEST BY: Individual Instruction Written Instruction - Hand-outs Verbal Instruction Multiple Methods FACTORS AFFECTING LEARNING: None PHYSICAL LIMITATIONS AFFECTING LEARNING: None LEARNING RESPONSE DIAGNOSIS: Hypogonadism in male METHOD OF INSTRUCTION: Teach Back Individual instruction Written instruction/Handouts Verbal instruction Demonstration/Hands on Learning PATIENT / FAMILY RESPONSE: Verbalizes understanding of: INFECTION MANAGEMENT-Signs and symptoms of an infection and importance of contacting the physician MEDICAL REGIMEN-Importance of following prescribed medical regimen PAIN MANAGEMENT-Effective strategies to manage pain in addition to pain medication RISK FACTORS-Unique risk factors related to their disease FOLLOW-UP PLAN: Patient instructed to call with any further issues; keep f/u appointment with Dr. Palacio SUPPLEMENTAL MATERIAL: Print-out from [employer] with information, instructions, and pictures (see attachment in 07/19/2024 [facility] message) REFERRAL (RECOMMENDATION): None -- Pt presents today for nurse visit to receive education regarding self-administration of IM testosterone to the thigh. He has previously self-administered testosterone subcutaneously, topically, and IM in the glute but never in the thigh. He just wanted to administer his first IM thigh injection in observation of a nurse to ensure that he was doing it correctly. Pt brings all supplies and medication with him to appointment. Verified Pt's name AND upon arrival. Updated med/allergy list. Pt completes appropriate steps to self-administer 40mg (0.2mL) of testosterone cypionate (200mg/mL) IM in his Rt lateral thigh at 90 degrees. Pt feels confident that he can complete these injections twice a week at home without problem. Guidance, support, and praise provided. Instructed Pt to reach out to office contact worker if he has any further questions and/or concerns; he voices understanding. Pt ambulatory to exit. Electronically Signed By nAgie Perez RN in Department: ENDOCRINOLOGY Allergies As of Date: 07/30/2024 Noted Allergy Reaction COLD MEDICINE NON-DROWSINESS 07/30/2024 12 - Shortness of Breath Date Reviewed: 07/30/2024 Reviewed by: Angie Perez, RN - Fully Assessed Reason for Visit: Nurse Visit [792] Cmt: Education re: how to give thigh IM injections for testosterone Primary Visit Diagnosis:Hypogonadism in male [E29.1] Prescriptions as of 07/30/2024 - CELERY SEED OIL, BULK, MISC Take 1 each by mouth once daily. - lisinopril (ZESTRIL) 5 mg tablet Take 1 tablet by mouth once daily. - latanoprost (XALATAN) 0.005 % ophthalmic solution Use 1 drop in both eyes once daily. - testosterone cypionate (DEPO-TESTOSTERONE) 200 mg/mL injection Inject 200 mg intramuscularly two times a week. - cyanocobalamin, vitamin B-12, (VITAMIN B-12 ORAL) Take 1 tablet by mouth once daily. - GARLIC EXTRACT ORAL Take 1 capsule by mouth once daily. - CELERY - aspirin, enteric coated (ASPIR-LOW) 81 mg EC tablet Take 1 tablet by mouth once daily. - Cholecalciferol, Vitamin D3, 1,000 unit cap Take 1 capsule by mouth once daily. - folic acid 1 mg tablet Take 1 tablet by mouth once daily. Problem List As Of Date 07/30/2024 Noted Resolved PRURITUS ANI [L29.0] 12/09/2005 ANAL FISTULA [K60.30] 12/09/2005 RECTAL AND ANAL HEMORRHAGE [K62.5] Other instructions from your clinician: Please reach out through [employer] or call the office if you have any further questions and/or concerns regarding giving yourself IM injections of testosterone in your thigh. Disposition: Return in about 3 months (around 10/30/2024), or next scheduled f/u with Dr. Palacio. Follow-up and Disposition History for Encounter Date Provider Department Center 07/30/2024 [id number] ENDO [facility] WSTR ENWSTR Lester [facility] Encounter Status:Closed by ANGIE PEREZ on 07/30/24 Normal [facility] Free PSA [Mass/Vol]on 2024 Free PSA/Total PSA [Mass fraction] 29 % [facility] Comment on above: Total and free PSA t est methodology used is the Electrochemiluminescence Immunoassay by [employer]. Total or free PSA values by differing methodologies cannot be interchanged. The below table lists the probability of finding prostate cancer upon needle biopsy, for men 50 years or older and total PSA concentrations from 4.0-10.0 ng/mL. Results should be interpreted within the broader clinical context. Free PSA(%) 50-59 years 60-69 years >69 years <11 49.2% 57.5% 64.5% 11-18 26.9% 33.9% 40.8% 19-25 18.3% 23.9% 29.7% >25 9.1% 12.2% 15.8% Prostate specific Ag [Mass/Vol] 5.59 ng/mL High NINF - 2.60 ng/mL [facility] Comment on above: Total PSA test metho dology used is the Electrochemiluminescence Immunoassay by [employer]. Total PSA values by differing methodologies cannot be interchanged. For an individual patient, the significance of a PSA level should be interpreted in a broad clinical context, including age, race, family history, digital rectal exam, prostate size, results of prior testing (prostate biopsy, free PSA, PCA3), and use of 5-alpha reductase inhibitors. Considering the high incidence of asymptomatic cancer in the general population that may not pose an ultimate risk to a patient, the decision to recommend urological evaluation or prostate biopsy should be individualized after consideration of all these factors. REFERENCE: Sasha Leal M.D., M.P.H., Be Coelho M.D., Ph.D., Ever Phillips M.D., Apurva Floyd, M.P.H., Noelle Edwards, Sc.Joy. Effect of Verification Bias on Screening for Prostate Cancer by Measurement of Prostatic Specific Antigen. N Engl J Med 2003,349:335-42. No Panel Informationon 07-20 Interpretation and review of laboratory results Abnormal [facility] TESTOSTERONE, BIOAVAILABLE A ND TOTAL BY IMMUNOASSAY (ADULT MALES, OR INDIVIDUALS ON TESTOSTERONE THERAPY)on 07-20-2024 Albumin [Mass/Vol] 4.2 g/dL 3.9 - 4.9 g/dL [facility] Sex hormone binding globulin [Moles/Vol] 24 nmol/L 14 - 82 nmol/L [facility] Testo Bioavailable 470.3 ng/dL High 105.0 - 324.0 ng/dL [facility] Test Free Calc 178.4 pg/mL High 38.0 - 120.0 pg/mL [facility] Percent Free 2.4 % 1.1 - 2.6 % [facility] Testosterone [Mass/Vol] 735 ng/dL 193 - 824 ng/dL [facility] Comment on above: A testosterone level in the 193-320 ng/dL range with associated clinical symptoms is considered low and may indicate hypogonadism (from [facility] 2010 363:123-135). Results >320 ng/dL are considered normal. Free PSA [Mass/Vol]on 2024 Free PSA/Total PSA [Mass fraction] 29 % Normal [facility] Comment on above: Order Comment: Speci men Type: BLOOD SPECIMEN Ordering Facility: [facility] Address: [address] [place] [address] Result Comment: Tota l and free PSA test methodology used is the Electrochemiluminescence Immunoassay by [employer]. Total or free PSA values by differing methodologies cannot be interchanged. The below table lists the probability of finding prostate cancer upon needle biopsy, for men 50 years or older and total PSA concentrations from 4.0-10.0 ng/mL. Results should be interpreted within the broader clinical context. Free PSA(%) 50-59 years 60-69 years >69 years <11 49.2% 57.5% 64.5% 11-18 26.9% 33.9% 40.8% 19-25 18.3% 23.9% 29.7% >25 9.1% 12.2% 15.8% Performed By: #### 1 0886-0, BTESTO #### [facility] CLIA [id number] [address] [place] [address] [place] Prostate specific Ag [Mass/Vol] 5.59 ng/mL High <2.60 [facility] Comment on above: Order Comment: Speci men Type: BLOOD SPECIMEN Ordering Facility: [facility] Address: [address] [place] [address] Result Comment: Tota l PSA test methodology used is the Electrochemiluminescence Immunoassay by [employer]. Total PSA values by differing methodologies cannot be interchanged. For an individual patient, the significance of a PSA level should be interpreted in a broad clinical context, including age, race, family history, digital rectal exam, prostate size, results of prior testing (prostate biopsy, free PSA, PCA3), and use of 5-alpha reductase inhibitors. Considering the high incidence of asymptomatic cancer in the general population that may not pose an ultimate risk to a patient, the decision to recommend urological evaluation or prostate biopsy should be individualized after consideration of all these factors. REFERENCE: Sasha Leal M.D., M.P.H., Be Coelho M.D., Ph.D., Ever Phillips M.D., Apurva Floyd, M.P.H., Noelle Edwards ScDiego. Effect of Verification Bias on Screening for Prostate Cancer by Measurement of Prostatic Specific Antigen. N Engl J Med 2003,349:335-42. Performed By: #### 1 0886-0, BTESTO #### [facility] CLIA [id number] [address] [place] [address] [place] Hematocrit Auto (Bld) [Volum e fraction]on 07-19-2024 Hematocrit (Bld) [Volume fraction] 46.9 % 39.0 - 51.0 % [facility] Interpretation and review of laboratory results Normal [facility] Hematocrit (Bld) [Volume fraction] 46.9 % Normal 39.0-51.0 [facility] Comment on above: Order Comment: Speci men Type: BLOOD SPECIMEN Ordering Facility: [facility] Address: [address] [place] [address] Performed By: #### 4 544-3 #### [facility] CLIA [id number] [address] [place] [address] [place] TESTOSTERONE, BIOAVAILABLE A ND TOTAL BY IMMUNOASSAY (ADULT MALES, OR INDIVIDUALS ON TESTOSTERONE THERAPY)on 07-19-2024 Albumin [Mass/Vol] 4.2 g/dL Normal 3.9-4.9 [facility] Comment on above: Order Comment: Speci men Type: BLOOD SPECIMEN Ordering Facility: [facility] Address: [address] [place], [place] [id number] Performed By: #### 1 0886-0, BTESTO #### [facility] CLIA [id number] [address] [place] [address] [place] Sex hormone binding globulin [Moles/Vol] 24 nmol/L Normal 14-82 [facility] Comment on above: Order Comment: Speci men Type: BLOOD SPECIMEN Ordering Facility: [facility] Address: [address] [place] [address] Performed By: #### 1 0886-0, BTESTO #### [facility] CLIA [id number] [address] [place] [address] [place] Testosterone [Mass/Vol] 735 ng/dL Normal 193-824 [facility] Comment on above: Order Comment: Speci men Type: BLOOD SPECIMEN Ordering Facility: [facility] Address: [address] [place] [address] Result Comment: A te stosterone level in the 193-320 ng/dL range with associated clinical symptoms is considered low and may indicate hypogonadism (from [facility] 2010 363:123-135). Results >320 ng/dL are considered normal. Performed By: #### 1 0886-0, BTESTO #### [facility] CLIA [id number] [address] [place] [address] [place] TSTBIO 470.3 ng/dL High 105.0-324.0 [facility] Comment on above: Order Comment: Speci men Type: BLOOD SPECIMEN Ordering Facility: [facility] Address: [address] [place], [place] [id number] Performed By: #### 1 0886-0, BTESTO #### [facility] CLIA [id number] [address] [place] [address] [place] TSTFRC 178.4 pg/mL High 38.0-120.0 [facility] Comment on above: Order Comment: Speci men Type: BLOOD SPECIMEN Ordering Facility: [facility] Address: [address] [place] [address] Performed By: #### 1 0886-0, BTESTO #### [facility] CLIA [id number] [address] [place] [address] [place] TSTFRP 2.4 % Normal 1.1-2.6 [facility] Comment on above: Order Comment: Speci men Type: BLOOD SPECIMEN Ordering Facility: [facility] Address: [address] [place] [address] Performed By: #### 1 0886-0, BTESTO #### [facility] CLIA [id number] [address] [place], [place] [id number] [facility] CNOVon 07-17-2024 CNOV Office Visit (ENWSTR ) -- RANCHO GARZON ([id number]) 1955 M Date Time Provider Department 07/17/24 1:00 PM VITALIY PALACIO ENWSTR During your visit today, we recorded the following information about you: Temperature Pulse Blood pressure Weight 99.1 degrees 101/minute 136/74 89.4 kg Height 1.892 m Vitaliy Palacio MD 07/21/2024 10:04 PM Signed [facility] Initial Clinic Visit Note History of Present Illness: Mr. Garzon is a 69 year old male here today at the request of SELF for evaluation, management, and treatment of hypogonadism: He was seen by Marine Safety Officer, Dr. Ramirez at the age of 19 or 20 years due to delayed secondary sexual characteristics, and underwent evaluate with diagnosis of hypogonadism Chromosomes are normal he reports. 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 Does not think he underwent MRI pituitary, but reports Xray of the head was done No reported altered sensation of smell He was started on TRT at the same age around 20 years of age. Was on TRT IM until 59 years, later switched to patches due to insurance issues, on which he was on for 5 years - switched back to IM 200 mg every 2 weeks He is currently managed for hypogonadism by his PCP since 1984. Recently changed PCP's and would like Endocrinology to take care of his hormonal issues He reports finding on his research that IM TRT raises Hb more, so he switched to gel. He did not like it, so switched back to IM formulation He reports his hemoglobin was high to 18 along with Hct, in addition to high cholesterol, high PSA. He also reports he had pain in leg lower extremity during that time Then through more research and reading through more articles, he found that SubQ has less risk of Hb elevation, and he started to take IM formulation as subcutaneous to lower Hct and Hb. He also donated blood to lower Hb multiple times. He still does this every 2 months He reports taking subcutaneous for about a year. No side effects - he is doing 40 mg two times weekly (because he could not get enough with taking 0.25 ml 2 times weekly). She was on enanthate as well and it was changed due to unknown reason Symptoms: No symptoms concerning. No whas normal secondary sexual characteristics He has no issues with sex drive or erections. Denied any opioid use, antifungal, antiseizure medications. No use of supplements reported Risk factors for Complications : History or Family history of Prostate Cancer : everyone in the family has prostate cancer Seen Urology and they are okay with the current testosterone doses and the PSA levels Race : no History of Breast Cancer : not known History of ORTIZ or suggestive of ORTIZ: a little bit of snoring Patient reports he never did labs aon fasting. 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 Cholecalciferol, Vitamin D3, 1,000 unit cap Take 1 capsule by mouth once daily. folic acid 1 mg tablet Take 1 tablet by mouth once daily. No current facility-administered medications on file prior to visit. ALLERGIES Allergen Reactions Cold Medications [O* Shortness of Breath FAMILY HISTORY Problem Relation Age of Onset Alcohol/Drug Mother Heart Paternal Grandfather Prostate Cancer Paternal Grandfather Vitals: BP 136/74 (BP Site: Right Arm, BP Position: Sitting, BP Cuff Size: Regular Adult) Pulse 101 Temp 37.3 ?C (99.1 ?F) (Temporal Artery) Ht 189.2 cm (6' 2.5) Wt 89.4 kg (197 lb) SpO2 98% BMI 24.95 kg/m? There is no height or weight on file to calculate BMI. Physical exam: General: WNWD, NAD, Extremities proportion: normal Eyes: conjunctivae are pink, and moist. No exopthalmos, lag, or stare Neck: The thyroid is normal, nontender, no adenopthy Lymphatic: no cervical or supraclavicular adenopathy Cardiovascular: regular rate and rhythm Respiratory: full sounds bilaterally with normal expansion Gastrointestinal: soft, non-tender, normal bowel sounds, no hepatosplenomegaly Musculoskeletal: normal muscle mass Spine: no kyphosis present, no lordosis present Skin: normal, no rashes present Neurologic: Visual Field defects, no tremors, no focal deficits, normal gait Pyschiatric: mood and affect are normal DATA REVIEW: Labs: these are few labs done at [facility]. Multiple labs sca (more content not included)... Normal [facility] Testosterone, Total / Freeon 07-05-2024 TESTOSTER,FREE 21.97 ng/dL Abnormal 5.00-21.00 [facility] Comment on above: Order Comment: N Performed By: #### L 3110.0500, L100.0500 #### [facility] [address] [place], [place], [address] TESTOSTER,TOTAL 602 ng/dL Normal 264-916 [facility] Comment on above: Order Comment: N Result Comment: Adul t male reference interval is based on a population of healthy nonobese males (BMI <30) between 19 and 39 years old. lea Saldivar.al. JCEM 2017,102;0501-7855. PMID: [id number]. Performed By: #### L 3110.0500, L100.0500 #### [facility] [address] [place], [place], [id number] TESTOSTERONE,%F 3.65 Normal 1.50-4.20 [facility] Comment on above: Order Comment: N Result Comment: Perf ormed at: - [facility] [address] [id number] Supervisor Wet Room: Tyson Gooden PhD, Phone: [phone] Performed at: - [facility] [address] [id number] Supervisor Wet Room: Kaylen Browne MD, Phone: [phone] Performed By: #### L 3110.0500, L100.0500 #### [facility] [address] [place], [place], [id number] Absolute neutrophil countOrd ered By: Jere Vinson on 06-22-2024 Neutrophils (Bld) [#/Vol] 4.6 10*3/uL 2.0-7.7 [facility] Anion gap in Serum or Plasma Ordered By: Jere Vinson on 06-22-2024 Anion gap [Moles/Vol] 15 mmol/L 5-15 [facility] BUN/creatinine ratioOrdered By: Jere Vinson on 06-22-2024 Urea nitrogen/Creatinine [Mass ratio] 18.4 mg/mg 10-20 [facility] Basophil percentageOrdered B y: Jere Vinson on 06-22-2024 Basophils/100 WBC (Bld) 0.6 % 0-1 [facility] Bilirubin, totalOrdered By: Jere Vinson on 06-22-2024 Bilirubin [Mass/Vol] 0.75 mg/dL 0.00-1.30 [facility] CBC W/Diff, Automatedon Absolute Lymph 1.65 X10 3/uL Normal 0.83-4.51 [facility] Comment on above: Performed By: #### L 3110.0500, L100.0500 #### [facility] [address] [place], [address] Absolute Neut 4.6 X10 3/uL Normal 2.0-7.7 [facility] Comment on above: Performed By: #### L 3110.0500, L100.0500 #### [facility] [address] [place], [address] Basophils/100 WBC (Bld) 0.6 % Normal 0-1 [facility] Comment on above: Performed By: #### L 3110.0500, L100.0500 #### [facility] [address] [place], [address] Eosinophils/100 WBC (Bld) 0.9 % Normal 0-5 [facility] Comment on above: Performed By: #### L 3110.0500, L100.0500 #### [facility] [address] [place], [address] Erythrocyte distribution width (RBC) [Ratio] 14.7 % High 11.6-14.6 [facility] Comment on above: Performed By: #### L 3110.0500, L100.0500 #### [facility] [address] [place], [address] Hematocrit (Bld) [Volume fraction] 47.0 % Normal 40-54 [facility] Comment on above: Performed By: #### L 3110.0500, L100.0500 #### [facility] [address] [place], [address] Hemoglobin (Bld) [Mass/Vol] 15.4 g/dL Normal 13.0-16.5 [facility] Comment on above: Performed By: #### L 3110.0500, L100.0500 #### [facility] [address] [place], [address] IG% 0.300 Normal 0.0-0.9 [facility] Comment on above: Result Comment: IG% - Immature Granulocytes (promyelocytes, myelocytes and metamyelocytes) > 1% indicates that a LEFT SHIFT is Present. Performed By: #### L 3110.0500, L100.0500 #### [facility] [address] [place], [address] Lymphocytes/100 WBC (Bld) 23.5 % Normal 19-41 [facility] Comment on above: Performed By: #### L 3110.0500, L100.0500 #### [facility] [address] [place], [address] MCH (RBC) [Entitic mass] 27.3 pg Normal 27.0-32.0 [facility] Comment on above: Performed By: #### L 3110.0500, L100.0500 #### [facility] [address] [place], [address] MCHC (RBC) [Mass/Vol] 32.8 g/dL Normal 32-36 [facility] Comment on above: Performed By: #### L 3110.0500, L100.0500 #### [facility] [address] [place], [address] MCV (RBC) [Entitic vol] 83.2 fL Normal 80-94 [facility] Comment on above: Performed By: #### L 3110.0500, L100.0500 #### [facility] [address] [place], [address] Monocytes/100 WBC (Bld) 9.1 % Normal 0-10 [facility] Comment on above: Performed By: #### L 3110.0500, L100.0500 #### [facility] [address] [place], [address] Neutrophils/100 WBC (Bld) 65.6 % Normal 47-70 [facility] Comment on above: Performed By: #### L 3110.0500, L100.0500 #### [facility] [address] [place], [address] Nucleated RBC (Bld) [#/Vol] 0 10*3/uL Normal 0-5 [facility] Comment on above: Performed By: #### L 3110.0500, L100.0500 #### [facility] [address] [place], [address] Platelet mean volume (Bld) [Entitic vol] 11.0 fL Normal 6.2-12.0 [facility] Comment on above: Performed By: #### L 3110.0500, L100.0500 #### [facility] [address] [place], [address] Platelets (Bld) [#/Vol] 268 10*3/uL Normal 150-450 [facility] Comment on above: Performed By: #### L 3110.0500, L100.0500 #### [facility] [address] [place], [address] RBC (Bld) [#/Vol] 5.65 10*6/uL Normal 4.6-6.2 [facility] Comment on above: Performed By: #### L 3110.0500, L100.0500 #### [facility] [address] [place], [address] RDW SD 44.6 fl High 35.1-43.9 [facility] Comment on above: Performed By: #### L 3110.0500, L100.0500 #### [facility] [address] [place], [address] WBC (Bld) [#/Vol] 7.0 10*3/uL Normal 4.4-11.0 [facility] Comment on above: Performed By: #### L 3110.0500, L100.0500 #### [facility] [address] [place], [address] Calculated very low density lipoprotein (VLDL) cholesterol measurementOrdered By: Jere Vinson on 06-22-2024 VLDL Cholesterol 16 mg/dL 5-40 [facility] Carbon dioxide, total [Moles /volume] in Central venous bloodOrdered By: Jere Vinson on 06-22-2024 CO2 [Moles/Vol] 19.0 mmol/L Low 21.0-32.0 [facility] Chloride assayOrdered By: Jose Vinson on 06-22-2024 Chloride [Moles/Vol] 103 mmol/L 98-108 [facility] Comprehensive Metabolic Prof ilon 06-22-2024 Albumin [Mass/Vol] 4.4 g/dL Normal 3.4-4.8 [facility] Comment on above: Performed By: #### L 3110.0500, L100.0500 #### [facility] [address] [place], [address] Albumin/Globulin [Mass ratio] 1.6 {ratio} Normal 0.9-2.4 [facility] Comment on above: Performed By: #### L 3110.0500, L100.0500 #### [facility] [address] [place], [address] ALK PHOS 62 U/L Normal 40-129 [facility] Comment on above: Performed By: #### L 3110.0500, L100.0500 #### [facility] [address] [place], [address] ALT [Catalytic activity/Vol] 34 U/L Normal <=46 [facility] Comment on above: Performed By: #### L 3110.0500, L100.0500 #### [facility] [address] [place], [address] AST [Catalytic activity/Vol] 31 U/L Normal <=37 [facility] Comment on above: Performed By: #### L 3110.0500, L100.0500 #### [facility] [address] [place], [address] Bilirubin [Mass/Vol] 0.75 mg/dL Normal 0.00-1.30 [facility] Comment on above: Performed By: #### L 3110.0500, L100.0500 #### [facility] [address] [place], [address] BUN/CRE 18.4 RATIO Normal 10-20 [facility] Comment on above: Performed By: #### L 3110.0500, L100.0500 #### [facility] [address] [place], [address] Calcium [Mass/Vol] 9.4 mg/dL Normal 7.6-11.0 [facility] Comment on above: Performed By: #### L 3110.0500, L100.0500 #### [facility] [address] [place], [address] Chloride [Moles/Vol] 103 mmol/L Normal 98-108 [facility] Comment on above: Performed By: #### L 3110.0500, L100.0500 #### [facility] [address] [place], [address] CO2 [Moles/Vol] 19.0 mmol/L Low 21.0-32.0 [facility] Comment on above: Performed By: #### L 3110.0500, L100.0500 #### [facility] [address] [place], [address] Creatinine [Mass/Vol] 0.75 mg/dL Normal 0.70-1.20 [facility] Comment on above: Performed By: #### L 3110.0500, L100.0500 #### [facility] [address] [place], [address] GAP 15 Normal 5-15 [facility] Comment on above: Performed By: #### L 3110.0500, L100.0500 #### [facility] [address] [place], [address] GFR/1.73 sq M.predicted among non-blacks MDRD (S/P/Bld) [Vol rate/Area] 99 mL/min/{1.73_m2} Normal >60 [facility] Comment on above: Result Comment: mL/m in/1.73m2 CKD-EPI Creatinine Equation (2020) Performed By: #### L 3110.0500, L100.0500 #### [facility] [address] [place], [address] Globulin (S) [Mass/Vol] 2.8 g/dL Normal 2.2-4.2 [facility] Comment on above: Performed By: #### L 3110.0500, L100.0500 #### [facility] [address] [place], [address] Glucose [Mass/Vol] 89 mg/dL Normal 70-99 [facility] Comment on above: Performed By: #### L 3110.0500, L100.0500 #### [facility] [address] [place], [address] Potassium [Moles/Vol] 3.9 mmol/L Normal 3.3-5.1 [facility] Comment on above: Performed By: #### L 3110.0500, L100.0500 #### [facility] [address] [place], [address] Sodium [Moles/Vol] 137 mmol/L Normal 133-145 [facility] Comment on above: Performed By: #### L 3110.0500, L100.0500 #### [facility] [address] [place], [address] T PROT 7.3 g/dL Normal 5.9-8.4 [facility] Comment on above: Performed By: #### L 3110.0500, L100.0500 #### [facility] [address] [place], [place], [address] Urea nitrogen [Mass/Vol] 14 mg/dL Normal 4-19 [facility] Comment on above: Performed By: #### L 3110.0500, L100.0500 #### [facility] [address] [place], [place], [id number] Diagnostic total prostate sp ecific antigen (PSA) measurementOrdered By: Jere Vinson on 06-22-2024 Prostate Specific Antigen Total 6.18 ng/mL High 0.00-4.00 [facility] Comment on above: This test was perfor med using the [facility] tPSA method. Measured values of a patient sample can vary depending on the testing procedure used. PSA values determined on patient samples by different testing procedures cannot be used interchangeably. If there is a change in PSA assays while monitoring therapy, sequential testing should be performed to confirm baseline values. Eosinophil percentageOrdered By: Jere Vinson on 06-22-2024 Eosinophils/100 WBC (Bld) 0.9 % 0-5 [facility] Erythrocyte distribution wid th (RBC) [Ratio]Ordered By: Jere Vinson on 06-22-2024 Erythrocyte distribution width (RBC) [Entitic vol] 44.6 fL High 35.1-43.9 [facility] Erythrocyte distribution wid th ratioOrdered By: Jere Vinson on 06-22-2024 Erythrocyte distribution width (RBC) [Ratio] 14.7 % High 11.6-14.6 [facility] GFR/1.73 sq M.predicted ingrid g non-blacks MDRD (S/P/Bld) [Vol rate/Area]Ordered By: Jere Vinson on 06-22-2024 Estimated GFR (MDRD) Non-Af Amer 99 >60 [facility] Comment on above: mL/min/1.73m2 CKD-EP I Creatinine Equation (2020) Hematocrit Auto (Bld) [Volum e fraction]Ordered By: Jere Vinson on 06-22-2024 Hematocrit (Bld) [Volume fraction] 47.0 % 40-54 [facility] Hemoglobin measurementOrdere d By: Jere Vinson on 06-22-2024 Hemoglobin (Bld) [Mass/Vol] 15.4 g/dL 13.0-16.5 [facility] Immature granulocytes/100 WB C Auto (Bld)Ordered By: Jere Vinson on 06-22-2024 Immature granulocytes/100 WBC (Bld) 0.300 % 0.0-0.9 [facility] Comment on above: IG% - Immature Granu locytes (promyelocytes, myelocytes and metamyelocytes) > 1% indicates that a LEFT SHIFT is Present. LDL calc ser/plasOrdered By: Jere Vinson on 06-22-2024 LDL Cholesterol, Calculated 91 mg/dL [facility] Comment on above: Eauguxjpzc=870-996 m g/dL & Higher Tjls=821 mg/dL or greater Laboratory - Chemistry and C hemistry - challengeOrdered By: Jere Vinson on 06-22-2024 AST [Catalytic activity/Vol] 31 U/L <38 [facility] Lipid Profileon 06-22-2024 CHOL:HDL 2.10 Normal [facility] Comment on above: Performed By: #### L 3110.0500, L100.0500 #### [facility] [address] [place], [place], [address] (625) Cholesterol [Mass/Vol] 204 mg/dL High <=200 [facility] Comment on above: Result Comment: Chol esterol level, Desirable <200 mg/dL Borderline high cholesterol 200-239 mg/dL High cholesterol >=240 mg/dL Recommendations of the NCEP Adult Treatment Panel for the following risk-cutoff thresholds for the [place] population. Performed By: #### L 3110.0500, L100.0500 #### [facility] [address] [place], [address] Cholesterol in HDL [Mass/Vol] 97 mg/dL Normal [facility] Comment on above: Result Comment: [place] onal Cholesterol Education Program (NCEP) guidelines: <40 mg/dL: Low HDL-cholesterol (major risk factor for CHD) >= 60 mg/dL: High HDL-cholesterol (negative risk factor for CHD) HDL-cholesterol is affected by a number of factors, e.g. smoking, exercise, hormones, sex and age. Performed By: #### L 3110.0500, L100.0500 #### [facility] [address] [place], [address] Cholesterol in LDL [Mass/Vol] 91 mg/dL Normal [facility] Comment on above: Result Comment: Bord nzgnxr=679-873 mg/dL Higher Wnlm=748 mg/dL or greater Performed By: #### L 3110.0500, L100.0500 #### [facility] [address] [place], [address] Cholesterol in VLDL [Mass/Vol] 16 mg/dL Normal 5-40 [facility] Comment on above: Performed By: #### L 3110.0500, L100.0500 #### [facility] [address] [place], [address] Triglyceride [Mass/Vol] 78 mg/dL Normal [facility] Comment on above: Result Comment: The drugs N-Acetylcysteine and Metamizole may falsely depress this assay. Normal range: <150 mg/dL Borderline High: 150-199 mg/dL High: 200-499 mg/dL Very High: >500 mg/dL Performed By: #### L 3110.0500, L100.0500 #### [facility] [address] [place], [address] Lymphocytes Auto (Unsp spec) [#/Vol]Ordered By: Jere Vinson on 06-22-2024 Lymphocytes (Bld) [#/Vol] 1.65 10*3/uL 0.83-4.51 [facility] Lymphocytes/100 WBC Auto (Un sp spec)Ordered By: Jere Vinson on 06-22-2024 Lymphocytes/100 WBC (Bld) 23.5 % 19-41 [facility] MCV (mean corpuscular volume ) determinationOrdered By: Jere Vinson on 06-22-2024 MCV (RBC) [Entitic vol] 83.2 fL 80-94 [facility] Mean corpuscular hemoglobin (MCH) determinationOrdered By: Jere Vinson on 06-22-2024 MCH (RBC) [Entitic mass] 27.3 pg 27.0-32.0 [facility] Mean corpuscular hemoglobin concentration (MCHC) determinationOrdered By: Jere Vinson on 06-22-2024 MCHC (RBC) [Mass/Vol] 32.8 g/dL 32-36 [facility] Mean platelet volume determi nationOrdered By: Jere Vinson on 06-22-2024 Platelet mean volume (Bld) [Entitic vol] 11.0 fL 6.2-12.0 [facility] Monocyte percentageOrdered B y: Jere Vinson on 06-22-2024 Monocytes/100 WBC (Bld) 9.1 % 0-10 [facility] Neutrophil percentageOrdered By: Jere Vinson on 06-22-2024 Neutrophils/100 WBC (Bld) 65.6 % 47-70 [facility] Nucleated red blood cell per centageOrdered By: Jere Vinson on 06-22-2024 Nucleated RBC/100 WBC (Bld) [Ratio] 0 % 0-5 [facility] PSA,Total- Diagnosticon 04-0 PSA, DIAGNOSTIC 6.18 ng/mL High 0.00-4.00 [facility] Comment on above: Result Comment: This test was performed using the [facility] tPSA method. Measured values of a patient??sample can vary depending on the testing procedure used. PSA values determined on patient samples by different testing procedures cannot be used interchangeably. If there is a change in PSA assays while monitoring therapy, sequential testing should be performed to confirm baseline values. Performed By: #### L 3110.0500, L100.0500 #### [facility] [address] [place], [address] Platelet countOrdered By: Jose Vinson on 06-22-2024 Platelets (Bld) [#/Vol] 268 10*3/uL 150-450 [facility] Potassium (Unsp spec) [Mass/ Vol]Ordered By: Jere Vinson on 06-22-2024 Potassium [Moles/Vol] 3.9 mmol/L 3.3-5.1 [facility] RBC Auto (Bld) [#/Vol]Ordere d By: Jere Vinson on 06-22-2024 RBC (Bld) [#/Vol] 5.65 10*6/uL 4.6-6.2 [facility] Screening total cholesterol/ high density lipoprotein (HDL) cholesterol ratioOrdered By: Jere Vinson on 06-22-2024 Cholesterol.total/Chol esterol in HDL [Mass ratio] 2.10 {ratio} [facility] Serum creatinine measurement (mass/volume)Ordered By: Jere Vinson on 06-22-2024 Creatinine [Mass/Vol] 0.75 mg/dL 0.70-1.20 [facility] Serum globulin measurementOr dered By: Jere Vinson on 06-22-2024 Globulin (S) [Mass/Vol] 2.8 g/dL 2.2-4.2 [facility] Serum glucose measurement (m ass/volume)Ordered By: Jere Vinson on 06-22-2024 Glucose [Mass/Vol] 89 mg/dL 70-99 [facility] Serum or plasma alanine desai otransferase (ALT) measurementOrdered By: Jere Vinson on 06-22-2024 ALT [Catalytic activity/Vol] 34 U/L <47 [facility] Serum or plasma albumin raegan urement (mass/volume)Ordered By: Jere Vinson on 06-22-2024 Albumin [Mass/Vol] 4.4 g/dL 3.4-4.8 [facility] Serum or plasma albumin/glob ulin mass ratioOrdered By: Jere Vinson on 06-22-2024 Albumin/Globulin [Mass ratio] 1.6 {ratio} 0.9-2.4 [facility] Serum or plasma alkaline prachi sphatase measurementOrdered By: Jere Vinson on 06-22-2024 ALP [Catalytic activity/Vol] 62 U/L 40-129 [facility] Serum or plasma calcium raegan urement (mass/volume)Ordered By: Jere Vinson on 06-22-2024 Calcium [Mass/Vol] 9.4 mg/dL 7.6-11.0 [facility] Serum or plasma cholesterol in HDL measurement (mass/volume)Ordered By: Jere Vinson on 06-22-2024 Cholesterol in HDL [Mass/Vol] 97 mg/dL >40 [facility] Comment on above: National Cholesterol Education Program (NCEP) guidelines:<40 mg/dL: Low HDL-cholesterol (major risk factor for CHD)>= 60 mg/dL: High HDL-cholesterol (negative risk factor for CHD)HDL-cholesterol is affected by a number of factors, e.g. smoking, exercise, hormones, sex and age. Serum or plasma cholesterol measurement (mass/volume)Ordered By: Jere Vinson on 06-22-2024 Cholesterol [Mass/Vol] 204 mg/dL High <201 [facility] Comment on above: Cholesterol level, D esirable <200 mg/dLBorderline high cholesterol 200-239 mg/dLHigh cholesterol >=240 mg/dLRecommendations of the NCEP Adult Treatment Panel for the following risk-cutoff thresholds for the [place] population. Serum or plasma urea nitroge n measurement (mass/volume)Ordered By: Jere Vinson on 06-22-2024 Urea nitrogen [Mass/Vol] 14 mg/dL - [facility] Sodium levelOrdered By: Jere Vinson on 06-22-2024 Sodium [Moles/Vol] 137 mmol/L 133-145 [facility] Total proteinOrdered By: Iveth Vinson on 06-22-2024 Protein [Mass/Vol] 7.3 g/dL 5.9-8.4 [facility] Triglycerides measurementOrd ered By: Jere Vinson on 06-22-2024 Triglyceride [Mass/Vol] 78 mg/dL <199 [facility] Comment on above: The drugs N-Acetylcy steine and Metamizole may falsely depress this assay. Normal range: <150 mg/dLBorderline High: 150-199 mg/dLHigh: 200-499 mg/dLVery High: >500 mg/dL White blood cell (WBC) count Ordered By: Jere Vinson on 06-22-2024 WBC (Bld) [#/Vol] 7.0 10*3/uL 4.4-11.0 [facility] Absolute neutrophil countOrd ered By: Jere Vinson on 03-08-2024 Neutrophils (Bld) [#/Vol] 5.0 10*3/uL 2.0-7.7 [facility] Albumin to globulin ratioOrd ered By: Jere Vinson on 03-08-2024 Albumin/Globulin [Mass ratio] 1.0 {ratio} 0.9-2.4 [facility] Basophil percentageOrdered B y: Jere Vinson on 03-08-2024 Basophils/100 WBC (Bld) 0.9 % 0-1 [facility] Bilirubin, totalOrdered By: Jere Vinson on 03-08-2024 Bilirubin [Mass/Vol] 0.80 mg/dL 0.20-1.00 [facility] Comment on above: For patients on eltr ombopag therapy, use of Dimension [place] TBIL is not recommended. Blood urea nitrogen (BUN)/cr eatinine ratioOrdered By: Jere Vinson on 03-08-2024 Urea nitrogen/Creatinine [Mass ratio] 19.1 mg/mg 01-07 [facility] CBC W/Diff, Automatedon 02-18 Absolute Lymph 1.03 X10 3/uL Normal 0.83-4.51 [facility] Comment on above: Performed By: #### L 500.4050, L509.3000, L501.9940, L100.0100, L500.4100 #### [facility] [address] [place], [address] Absolute Neut 5.0 X10 3/uL Normal 2.0-7.7 [facility] Comment on above: Performed By: #### L 500.4050, L509.3000, L501.9940, L100.0100, L500.4100 #### [facility] [address] [place], [address] Basophils/100 WBC (Bld) 0.9 % Normal 0-1 [facility] Comment on above: Performed By: #### L 500.4050, L509.3000, L501.9940, L100.0100, L500.4100 #### [facility] [address] [place], [address] Eosinophils/100 WBC (Bld) 1.2 % Normal 0-5 [facility] Comment on above: Performed By: #### L 500.4050, L509.3000, L501.9940, L100.0100, L500.4100 #### [facility] [address] [place], [address] Erythrocyte distribution width (RBC) [Ratio] 14.6 % Normal 11.6-14.6 [facility] Comment on above: Performed By: #### L 500.4050, L509.3000, L501.9940, L100.0100, L500.4100 #### [facility] [address] [place], [address] Hematocrit (Bld) [Volume fraction] 49.1 % Normal 40-54 [facility] Comment on above: Performed By: #### L 500.4050, L509.3000, L501.9940, L100.0100, L500.4100 #### [facility] [address] [place], [address] Hemoglobin (Bld) [Mass/Vol] 16.2 g/dL Normal 13.0-16.5 [facility] Comment on above: Performed By: #### L 500.4050, L509.3000, L501.9940, L100.0100, L500.4100 #### [facility] [address] [place], [address] IG% 0.400 Normal 0.0-0.9 [facility] Comment on above: Result Comment: IG% - Immature Granulocytes (promyelocytes, myelocytes and metamyelocytes) > 1% indicates that a LEFT SHIFT is Present. Performed By: #### L 500.4050, L509.3000, L501.9940, L100.0100, L500.4100 #### [facility] [address] [place], [address] Lymphocytes/100 WBC (Bld) 14.9 % Low 19-41 [facility] Comment on above: Performed By: #### L 500.4050, L509.3000, L501.9940, L100.0100, L500.4100 #### [facility] [address] [place], [address] MCH (RBC) [Entitic mass] 27.9 pg Normal 27.0-32.0 [facility] Comment on above: Performed By: #### L 500.4050, L509.3000, L501.9940, L100.0100, L500.4100 #### [facility] [address] [place], [address] MCHC (RBC) [Mass/Vol] 33.0 g/dL Normal 32-36 [facility] Comment on above: Performed By: #### L 500.4050, L509.3000, L501.9940, L100.0100, L500.4100 #### [facility] [address] [place], [address] MCV (RBC) [Entitic vol] 84.7 fL Normal 80-94 [facility] Comment on above: Performed By: #### L 500.4050, L509.3000, L501.9940, L100.0100, L500.4100 #### [facility] [address] [place], [address] Monocytes/100 WBC (Bld) 10.0 % Normal 0-10 [facility] Comment on above: Performed By: #### L 500.4050, L509.3000, L501.9940, L100.0100, L500.4100 #### [facility] [address] [place], [address] Neutrophils/100 WBC (Bld) 72.6 % High 47-70 [facility] Comment on above: Performed By: #### L 500.4050, L509.3000, L501.9940, L100.0100, L500.4100 #### [facility] [address] [place], [address] Nucleated RBC (Bld) [#/Vol] 0 10*3/uL Normal 0-5 [facility] Comment on above: Performed By: #### L 500.4050, L509.3000, L501.9940, L100.0100, L500.4100 #### [facility] [address] [place], [address] Platelet mean volume (Bld) [Entitic vol] 11.1 fL Normal 6.2-12.0 [facility] Comment on above: Performed By: #### L 500.4050, L509.3000, L501.9940, L100.0100, L500.4100 #### [facility] [address] [place], [address] Platelets (Bld) [#/Vol] 254 10*3/uL Normal 150-450 [facility] Comment on above: Performed By: #### L 500.4050, L509.3000, L501.9940, L100.0100, L500.4100 #### [facility] [address] [place], [address] RBC (Bld) [#/Vol] 5.80 10*6/uL Normal 4.6-6.2 [facility] Comment on above: Performed By: #### L 500.4050, L509.3000, L501.9940, L100.0100, L500.4100 #### [facility] [address] [place], [address] RDW SD 44.8 fl High 35.1-43.9 [facility] Comment on above: Performed By: #### L 500.4050, L509.3000, L501.9940, L100.0100, L500.4100 #### [facility] [address] [place], [address] WBC (Bld) [#/Vol] 6.9 10*3/uL Normal 4.4-11.0 [facility] Comment on above: Performed By: #### L 500.4050, L509.3000, L501.9940, L100.0100, L500.4100 #### [facility] [address] [place], [address] Carbon dioxide measurementOr dered By: Jere Vinson on 03-08-2024 CO2 [Moles/Vol] 26.0 mmol/L 21.0-32.0 [facility] Chloride measurementOrdered By: Jere Vinson on 03-08-2024 Chloride [Moles/Vol] 104 mmol/L 98-107 [facility] Comprehensive Metabolic Prof ilon 03-08-2024 Albumin [Mass/Vol] 3.6 g/dL Normal 3.2-5.0 [facility] Comment on above: Performed By: #### L 500.4050, L509.3000, L501.9940, L100.0100, L500.4100 #### [facility] [address] [place], [address] Albumin/Globulin [Mass ratio] 1.0 {ratio} Normal 0.9-2.4 [facility] Comment on above: Performed By: #### L 500.4050, L509.3000, L501.9940, L100.0100, L500.4100 #### [facility] [address] [place], [address] ALK P 57 U/L Normal 45-117 [facility] Comment on above: Performed By: #### L 500.4050, L509.3000, L501.9940, L100.0100, L500.4100 #### [facility] [address] [place], [address] ALT [Catalytic activity/Vol] 27 U/L Normal 16-61 [facility] Comment on above: Performed By: #### L 500.4050, L509.3000, L501.9940, L100.0100, L500.4100 #### [facility] [address] [place], [address] AST [Catalytic activity/Vol] 23 U/L Normal 15-37 [facility] Comment on above: Performed By: #### L 500.4050, L509.3000, L501.9940, L100.0100, L500.4100 #### [facility] [address] [place], [address] Bilirubin [Mass/Vol] 0.80 mg/dL Normal 0.20-1.00 [facility] Comment on above: Result Comment: For patients on eltrombopag therapy, use of Dimension [place] TBIL is not recommended. Performed By: #### L 500.4050, L509.3000, L501.9940, L100.0100, L500.4100 #### [facility] [address] [place], [address] BUN/CRE 19.1 RATIO Normal 10-20 [facility] Comment on above: Performed By: #### L 500.4050, L509.3000, L501.9940, L100.0100, L500.4100 #### [facility] [address] [place], [address] CA,Total 8.7 mg/dL Normal 8.5-10.1 [facility] Comment on above: Performed By: #### L 500.4050, L509.3000, L501.9940, L100.0100, L500.4100 #### [facility] [address] [place], [address] Chloride [Moles/Vol] 104 mmol/L Normal 98-107 [facility] Comment on above: Performed By: #### L 500.4050, L509.3000, L501.9940, L100.0100, L500.4100 #### [facility] [address] [place], [address] CO2 [Moles/Vol] 26.0 mmol/L Normal 21.0-32.0 [facility] Comment on above: Performed By: #### L 500.4050, L509.3000, L501.9940, L100.0100, L500.4100 #### [facility] [address] [place], [address] Creatinine [Mass/Vol] 0.73 mg/dL Normal 0.70-1.30 [facility] Comment on above: Result Comment: The validity of the calculated GFR GFRAA in patients over 70 years has not been determined. Clinical correlation is essential. Performed By: #### L 500.4050, L509.3000, L501.9940, L100.0100, L500.4100 #### [facility] [address] [place], [address] EST GFR - AA 137 mL/min Normal >60 [facility] Comment on above: Result Comment: Afri can Fijian GFR Calc Performed By: #### L 500.4050, L509.3000, L501.9940, L100.0100, L500.4100 #### [facility] [address] [place], [address] GAP 4 Low 5-15 [facility] Comment on above: Performed By: #### L 500.4050, L509.3000, L501.9940, L100.0100, L500.4100 #### [facility] [address] [place], [address] GFR/1.73 sq M.predicted among non-blacks MDRD (S/P/Bld) [Vol rate/Area] 113 mL/min/{1.73_m2} Normal >60 [facility] Comment on above: Result Comment: Non- GFR Calc Performed By: #### L 500.4050, L509.3000, L501.9940, L100.0100, L500.4100 #### [facility] [address] [place], [address] Globulin (S) [Mass/Vol] 3.6 g/dL Normal 2.2-4.2 [facility] Comment on above: Performed By: #### L 500.4050, L509.3000, L501.9940, L100.0100, L500.4100 #### [facility] [address] [place], [address] Glucose [Mass/Vol] 102 mg/dL Normal 74-106 [facility] Comment on above: Result Comment: Fast ing Glucose result from 100 to 125 mg/dL suggests IMPAIRED HOMEOSTASIS per A.D.A. criteria. Performed By: #### L 500.4050, L509.3000, L501.9940, L100.0100, L500.4100 #### [facility] [address] [place], [address] Potassium [Moles/Vol] 4.2 mmol/L Normal 3.5-5.1 [facility] Comment on above: Performed By: #### L 500.4050, L509.3000, L501.9940, L100.0100, L500.4100 #### [facility] [address] [place], [address] Sodium [Moles/Vol] 135 mmol/L Low 136-145 [facility] Comment on above: Performed By: #### L 500.4050, L509.3000, L501.9940, L100.0100, L500.4100 #### [facility] [address] [place], [address] T PROT 7.2 g/dL Normal 6.4-8.2 [facility] Comment on above: Performed By: #### L 500.4050, L509.3000, L501.9940, L100.0100, L500.4100 #### [facility] [address] [place], [address] Urea nitrogen [Mass/Vol] 14 mg/dL Normal 7-18 [facility] Comment on above: Performed By: #### L 500.4050, L509.3000, L501.9940, L100.0100, L500.4100 #### [facility] [address] [place], [address] Diagnostic total prostate sp ecific antigen (PSA) measurementOrdered By: Jere Vinson on 03-08-2024 Prostate Specific Antigen Total 6.57 ng/mL High 0.0-4.0 [facility] Comment on above: This test was perfor med using the TPSA assay method for [employer] chemistry system. Values obtained with differentassay methods cannot be used interchangably.When changing PSA assays in the course of monitoring apatient, additional sequential testing should be carriedout to confirm baseline values. Eosinophil percentageOrdered By: Jere Vinson on 03-08-2024 Eosinophils/100 WBC (Bld) 1.2 % 0-5 [facility] Erythrocyte distribution wid th (RBC) [Ratio]Ordered By: Jere Vnison on 03-08-2024 Erythrocyte distribution width (RBC) [Entitic vol] 44.8 fL High 35.1-43.9 [facility] Erythrocyte distribution wid th ratioOrdered By: Jere Vinson on 03-08-2024 Erythrocyte distribution width (RBC) [Ratio] 14.6 % 11.6-14.6 [facility] Estimated glomerular filtrat ion rate (GFR) AmericanOrdered By: Jere Vinson on 03-08-2024 Estimated GFR (MDRD) Amer 137 mL/min >60 [facility] Comment on above: GFR Calc Glomerular filtration rate ( GFR) estimationOrdered By: Jere Vinson on 03-08-2024 Estimated GFR (MDRD) Non-Af Amer 113 mL/min >60 [facility] Comment on above: Non- GFR Calc Glucose measurementOrdered B y: Jere Vinson on 03-08-2024 Glucose [Mass/Vol] 102 mg/dL 74-106 [facility] Comment on above: Fasting Glucose resu lt from 100 to 125 mg/dL suggests IMPAIRED HOMEOSTASIS per A.D.A. criteria. Hematocrit Auto (Bld) [Volum e fraction]Ordered By: Jere Vinson on 03-08-2024 Hematocrit (Bld) [Volume fraction] 49.1 % 40-54 [facility] Hemoglobin measurementOrdere d By: Jere Vinson on 03-08-2024 Hemoglobin (Bld) [Mass/Vol] 16.2 g/dL 13.0-16.5 [facility] High density lipoprotein (HD L) measurementOrdered By: Jere Vinson on 03-08-2024 Cholesterol in HDL [Mass/Vol] 74 mg/dL >40 [facility] Comment on above: The drugs N-Acetylcy steine and Metamizole may falsely depress this assay. Reference Range HDL <40 mg/dL Low HDL Cholesterol HDL >or= 60 mg/dL High HDL Cholesterol Immature granulocytes/100 WB C Auto (Bld)Ordered By: Jere Vinson on 03-08-2024 Immature granulocytes/100 WBC (Bld) 0.400 % 0.0-0.9 [facility] Comment on above: IG% - Immature Granu locytes (promyelocytes, myelocytes and metamyelocytes) > 1% indicates that a LEFT SHIFT is Present. Laboratory - Chemistry and C hemistry - challengeOrdered By: Jere Vinson on 03-08-2024 AST [Catalytic activity/Vol] 23 U/L 15-37 [facility] Lipid Profileon 03-08-2024 Cholesterol [Mass/Vol] 198 mg/dL Normal 200 [facility] Comment on above: Result Comment: <200 mg/dL Desirable 200-240 mg/dL Borderline >240 mg/dL High Risk Performed By: #### L 500.4050, L509.3000, L501.9940, L100.0100, L500.4100 #### [facility] [address] [place], [place], [id number] Cholesterol in HDL [Mass/Vol] 74 mg/dL Normal [facility] Comment on above: Result Comment: The drugs N-Acetylcysteine and Metamizole may falsely depress this assay. Reference Range HDL <40 mg/dL Low HDL Cholesterol HDL >or= 60 mg/dL High HDL Cholesterol Performed By: #### L 500.4050, L509.3000, L501.9940, L100.0100, L500.4100 #### [facility] [address] [place], [address] Cholesterol in LDL [Mass/Vol] 75 mg/dL Normal 0-130 [facility] Comment on above: Performed By: #### L 500.4050, L509.3000, L501.9940, L100.0100, L500.4100 #### [facility] [address] [place], [address] Cholesterol in VLDL [Mass/Vol] 49 mg/dL High 5-40 [facility] Comment on above: Performed By: #### L 500.4050, L509.3000, L501.9940, L100.0100, L500.4100 #### [facility] [address] [place], [address] Triglyceride [Mass/Vol] 245 mg/dL High [facility] Comment on above: Result Comment: The drugs N-Acetylcysteine and Metamizole may falsely depress this assay. Serum Triglycerides Reference Interval Normal <150 mg/dL Borderline high 150 - 199 mg/dL High 200 - 499 mg/dL Very High > or = 500 mg/dL Performed By: #### L 500.4050, L509.3000, L501.9940, L100.0100, L500.4100 #### [facility] [address] [place], [address] Low density lipoprotein (LDL ) cholesterol measurementOrdered By: Jere Vinson on 03-08-2024 Cholesterol in LDL [Mass/Vol] 75 mg/dL 0-130 [facility] Lymphocytes Auto (Unsp spec) [#/Vol]Ordered By: Jere Vinson on 03-08-2024 Lymphocytes (Bld) [#/Vol] 1.03 10*3/uL 0.83-4.51 [facility] Lymphocytes/100 WBC Auto (Un sp spec)Ordered By: Jere Vinson on 03-08-2024 Lymphocytes/100 WBC (Bld) 14.9 % Low 19-41 [facility] MCV (mean corpuscular volume ) determinationOrdered By: Jere Vinson on 03-08-2024 MCV (RBC) [Entitic vol] 84.7 fL 80-94 [facility] Mean corpuscular hemoglobin (MCH) determinationOrdered By: Jere Vinson on 03-08-2024 MCH (RBC) [Entitic mass] 27.9 pg 27.0-32.0 [facility] Mean corpuscular hemoglobin concentration (MCHC) determinationOrdered By: Jere Vinson on 03-08-2024 MCHC (RBC) [Mass/Vol] 33.0 g/dL 32-36 [facility] Mean platelet volume determi nationOrdered By: Jere Vinson on 03-08-2024 Platelet mean volume (Bld) [Entitic vol] 11.1 fL 6.2-12.0 [facility] Monocyte percentageOrdered B y: Jere Vinson on 03-08-2024 Monocytes/100 WBC (Bld) 10.0 % 0-10 [facility] Neutrophil percentageOrdered By: Jere Vinson on 03-08-2024 Neutrophils/100 WBC (Bld) 72.6 % High 47-70 [facility] Nucleated red blood cell per centageOrdered By: Jere Vinson on 03-08-2024 Nucleated RBC/100 WBC (Bld) [Ratio] 0 % 0-5 [facility] PSA,Total- Diagnosticon 12- PSA, DIAGNOSTIC 6.57 ng/mL High 0.0-4.0 [facility] Comment on above: Result Comment: This test was performed using the TPSA assay method for the [employer] chemistry system. Values obtained with different assay methods cannot be used interchangably. When changing PSA assays in the course of monitoring a patient, additional sequential testing should be carried out to confirm baseline values. Performed By: #### L 500.4050, L509.3000, L501.9940, L100.0100, L500.4100 #### [facility] [address] [place], [address] Platelet countOrdered By: Jose Vinson on 03-08-2024 Platelets (Bld) [#/Vol] 254 10*3/uL 150-450 [facility] Potassium measurementOrdered By: Jere Vinson on 03-08-2024 Potassium [Moles/Vol] 4.2 mmol/L 3.5-5.1 [facility] RBC Auto (Bld) [#/Vol]Ordere d By: Jere Vinson on 03-08-2024 RBC (Bld) [#/Vol] 5.80 10*6/uL 4.6-6.2 [facility] Serum anion gap measurementO rdered By: Jere Vinson on 03-08-2024 Anion gap [Moles/Vol] 4 mmol/L Low 5-15 [facility] Serum globulin measurementOr dered By: Jere Vinson on 03-08-2024 Globulin (S) [Mass/Vol] 3.6 g/dL 2.2-4.2 [facility] Serum or plasma alanine desai otransferase (ALT) measurementOrdered By: Jere Vinson on 03-08-2024 ALT [Catalytic activity/Vol] 27 U/L 16-61 [facility] Serum or plasma albumin raegan urement (mass/volume)Ordered By: Jere Vinson on 03-08-2024 Albumin [Mass/Vol] 3.6 g/dL 3.2-5.0 [facility] Serum or plasma alkaline prachi sphatase measurementOrdered By: Jere Vinson on 03-08-2024 ALP [Catalytic activity/Vol] 57 U/L 45-117 [facility] Serum or plasma calcium raegan urement (mass/volume)Ordered By: Jere Vinson on 03-08-2024 Calcium [Mass/Vol] 8.7 mg/dL 8.5-10.1 [facility] Serum or plasma cholesterol measurement (mass/volume)Ordered By: Jere Vinson on 03-08-2024 Cholesterol [Mass/Vol] 198 mg/dL <200 [facility] Comment on above: <200 mg/dL Desirable 200-240 mg/dL Borderline >240 mg/dL High Risk Serum or plasma creatinine m easurement (mass/volume)Ordered By: Jere Vinson on 03-08-2024 Creatinine [Mass/Vol] 0.73 mg/dL 0.70-1.30 [facility] Comment on above: The validity of the calculated GFR & GFRAA in patients over 70 years has not been determined. Clinical correlation is essential. Serum or plasma urea nitroge n measurement (mass/volume)Ordered By: Jere Vinson on 03-08-2024 Urea nitrogen [Mass/Vol] 14 mg/dL 7-18 [facility] Sodium levelOrdered By: Jere Vinson on 03-08-2024 Sodium [Moles/Vol] 135 mmol/L Low 136-145 [facility] Testosterone, Serum Totalon 03-08-2024 Testosterone [Mass/Vol] 354.16 ng/dL Normal [facility] Comment on above: Result Comment: CENT RAL 90% REFERENCE RANGES MALE AGE <50 197.44 - 669.58 ng/dL MALE AGE > or = 50 187.72 - 684.19 ng/dL FEMALE AGE <50 8.38 - 35.01 ng/dL FEMALE AGE > or = 50 <7.00 - 35.92 ng/dL Effective as of 10/14/20 Performed By: #### L 3110.0500, L100.0500 #### [facility] [address] [place], [place], [address] Testosterone, totalOrdered B y: Jere Vinson on 03-08-2024 Testosterone [Mass/Vol] 354.16 ng/dL [facility] Comment on above: CENTRAL 90% REFERENC E RANGES MALE AGE <50 197.44 - 669.58 ng/dL MALE AGE > or = 50 187.72 - 684.19 ng/dL FEMALE AGE <50 8.38 - 35.01 ng/dL FEMALE AGE > or = 50 <7.00 - 35.92 ng/dL Effective as of 10/14/20 Total proteinOrdered By: Iveth Vinson on 03-08-2024 Protein [Mass/Vol] 7.2 g/dL 6.4-8.2 [facility] Triglycerides measurementOrd ered By: Jere Vinson on 03-08-2024 Triglyceride [Mass/Vol] 245 mg/dL High <199 [facility] Comment on above: The drugs N-Acetylcy steine and Metamizole may falsely depress this assay.Serum Triglycerides Reference Interval Normal <150 mg/dL Borderline high 150 - 199 mg/dL High 200 - 499 mg/dL Very High > or = 500 mg/dL Very low density lipoprotein (VLDL) cholesterol measurementOrdered By: Jere Vinson on 03-08-2024 VLDL Cholesterol 49 mg/dL High 5-40 [facility] White blood cell (WBC) count Ordered By: Jere Vinson on 03-08-2024 WBC (Bld) [#/Vol] 6.9 10*3/uL 4.4-11.0 [facility] CBC W/Diff, Automatedon 11-19 Absolute Lymph 1.12 X10 3/uL Normal 0.83-4.51 [facility] Comment on above: Performed By: #### L 500.4100, L500.4050, L509.3000, L100.0100 #### [facility] [address] [place], [address] Absolute Neut 4.0 X10 3/uL Normal 2.0-7.7 [facility] Comment on above: Performed By: #### L 500.4100, L500.4050, L509.3000, L100.0100 #### [facility] [address] [place], [address] Basophils/100 WBC (Bld) 0.5 % Normal 0-1 [facility] Comment on above: Performed By: #### L 500.4100, L500.4050, L509.3000, L100.0100 #### [facility] [address] [place], [address] Eosinophils/100 WBC (Bld) 1.0 % Normal 0-5 [facility] Comment on above: Performed By: #### L 500.4100, L500.4050, L509.3000, L100.0100 #### [facility] [address] [place], [address] Erythrocyte distribution width (RBC) [Ratio] 14.5 % Normal 11.6-14.6 [facility] Comment on above: Performed By: #### L 500.4100, L500.4050, L509.3000, L100.0100 #### [facility] [address] [place], [address] Hematocrit (Bld) [Volume fraction] 46.7 % Normal 40-54 [facility] Comment on above: Performed By: #### L 500.4100, L500.4050, L509.3000, L100.0100 #### [facility] [address] [place], [address] Hemoglobin (Bld) [Mass/Vol] 15.4 g/dL Normal 13.0-16.5 [facility] Comment on above: Performed By: #### L 500.4100, L500.4050, L509.3000, L100.0100 #### [facility] [address] [place], [address] IG% 0.300 Normal 0.0-0.9 [facility] Comment on above: Result Comment: IG% - Immature Granulocytes (promyelocytes, myelocytes and metamyelocytes) > 1% indicates that a LEFT SHIFT is Present. Performed By: #### L 500.4100, L500.4050, L509.3000, L100.0100 #### [facility] [address] [place], [address] Lymphocytes/100 WBC (Bld) 19.5 % Normal 19-41 [facility] Comment on above: Performed By: #### L 500.4100, L500.4050, L509.3000, L100.0100 #### [facility] [address] [place], [address] MCH (RBC) [Entitic mass] 27.8 pg Normal 27.0-32.0 [facility] Comment on above: Performed By: #### L 500.4100, L500.4050, L509.3000, L100.0100 #### [facility] [address] [place], [address] MCHC (RBC) [Mass/Vol] 33.0 g/dL Normal 32-36 [facility] Comment on above: Performed By: #### L 500.4100, L500.4050, L509.3000, L100.0100 #### [facility] [address] [place], [address] MCV (RBC) [Entitic vol] 84.3 fL Normal 80-94 [facility] Comment on above: Performed By: #### L 500.4100, L500.4050, L509.3000, L100.0100 #### [facility] [address] [place], [address] Monocytes/100 WBC (Bld) 9.6 % Normal 0-10 [facility] Comment on above: Performed By: #### L 500.4100, L500.4050, L509.3000, L100.0100 #### [facility] [address] [place], [address] Neutrophils/100 WBC (Bld) 69.1 % Normal 47-70 [facility] Comment on above: Performed By: #### L 500.4100, L500.4050, L509.3000, L100.0100 #### [facility] [address] [place], [address] Nucleated RBC (Bld) [#/Vol] 0 10*3/uL Normal 0-5 [facility] Comment on above: Performed By: #### L 500.4100, L500.4050, L509.3000, L100.0100 #### [facility] [address] [place], [address] Platelet mean volume (Bld) [Entitic vol] 11.3 fL Normal 6.2-12.0 [facility] Comment on above: Performed By: #### L 500.4100, L500.4050, L509.3000, L100.0100 #### [facility] [address] [place], [address] Platelets (Bld) [#/Vol] 247 10*3/uL Normal 150-450 [facility] Comment on above: Performed By: #### L 500.4100, L500.4050, L509.3000, L100.0100 #### [facility] [address] [place], [address] RBC (Bld) [#/Vol] 5.54 10*6/uL Normal 4.6-6.2 [facility] Comment on above: Performed By: #### L 500.4100, L500.4050, L509.3000, L100.0100 #### [facility] [address] [place], [address] RDW SD 44.0 fl High 35.1-43.9 [facility] Comment on above: Performed By: #### L 500.4100, L500.4050, L509.3000, L100.0100 #### [facility] [address] [place], [address] WBC (Bld) [#/Vol] 5.7 10*3/uL Normal 4.4-11.0 [facility] Comment on above: Performed By: #### L 500.4100, L500.4050, L509.3000, L100.0100 #### [facility] [address] [place], [address] Comprehensive Metabolic Prof [facility] 12-08-2023 Albumin [Mass/Vol] 3.5 g/dL Normal 3.2-5.0 [facility] Comment on above: Performed By: #### L 500.4100, L500.4050, L509.3000, L100.0100 #### [facility] [address] [place], [address] Albumin/Globulin [Mass ratio] 1.1 {ratio} Normal 0.9-2.4 [facility] Comment on above: Performed By: #### L 500.4100, L500.4050, L509.3000, L100.0100 #### [facility] [address] [place], [address] ALK P 55 U/L Normal 45-117 [facility] Comment on above: Performed By: #### L 500.4100, L500.4050, L509.3000, L100.0100 #### [facility] [address] [place], [address] ALT [Catalytic activity/Vol] 31 U/L Normal 16-61 [facility] Comment on above: Performed By: #### L 500.4100, L500.4050, L509.3000, L100.0100 #### [facility] [address] [place], [address] AST [Catalytic activity/Vol] 23 U/L Normal 15-37 [facility] Comment on above: Performed By: #### L 500.4100, L500.4050, L509.3000, L100.0100 #### [facility] [address] [place], [address] Bilirubin [Mass/Vol] 0.80 mg/dL Normal 0.20-1.00 [facility] Comment on above: Result Comment: For patients on eltrombopag therapy, use of Dimension [place] TBIL is not recommended. Performed By: #### L 500.4100, L500.4050, L509.3000, L100.0100 #### [facility] [address] [place], [address] BUN/CRE 22.0 RATIO High 10-20 [facility] Comment on above: Performed By: #### L 500.4100, L500.4050, L509.3000, L100.0100 #### [facility] [address] [place], [address] CA,Total 9.1 mg/dL Normal 8.5-10.1 [facility] Comment on above: Performed By: #### L 500.4100, L500.4050, L509.3000, L100.0100 #### [facility] [address] [place], [address] Chloride [Moles/Vol] 106 mmol/L Normal 98-107 [facility] Comment on above: Performed By: #### L 500.4100, L500.4050, L509.3000, L100.0100 #### [facility] Laboratory [address] [place], [address] CO2 [Moles/Vol] 25.0 mmol/L Normal 21.0-32.0 [facility] Comment on above: Performed By: #### L 500.4100, L500.4050, L509.3000, L100.0100 #### [facility] [address] [place], [address] Creatinine [Mass/Vol] 0.68 mg/dL Low 0.70-1.30 [facility] Comment on above: Result Comment: The validity of the calculated GFR GFRAA in patients over 70 years has not been determined. Clinical correlation is essential. Performed By: #### L 500.4100, L500.4050, L509.3000, L100.0100 #### [facility] [address] [place], [address] EST GFR - AA 149 mL/min Normal >60 [facility] Comment on above: Result Comment: Afri can Fijian GFR Calc Performed By: #### L 500.4100, L500.4050, L509.3000, L100.0100 #### [facility] [address] [place], [address] GAP 5 Normal 5-15 [facility] Comment on above: Performed By: #### L 500.4100, L500.4050, L509.3000, L100.0100 #### [facility] [address] [place], [address] GFR/1.73 sq M.predicted among non-blacks MDRD (S/P/Bld) [Vol rate/Area] 123 mL/min/{1.73_m2} Normal >60 [facility] Comment on above: Result Comment: Non- GFR Calc Performed By: #### L 500.4100, L500.4050, L509.3000, L100.0100 #### [facility] [address] [place], [address] Globulin (S) [Mass/Vol] 3.3 g/dL Normal 2.2-4.2 [facility] Comment on above: Performed By: #### L 500.4100, L500.4050, L509.3000, L100.0100 #### [facility] [address] [place], [address] Glucose [Mass/Vol] 157 mg/dL High 74-106 [facility] Comment on above: Result Comment: Fast ing Glucose result greater than or equal to 126 mg/dL suggests DIABETES MELLITUS per A.D.A. criteria. Performed By: #### L 500.4100, L500.4050, L509.3000, L100.0100 #### [facility] [address] [place], [address] Potassium [Moles/Vol] 4.0 mmol/L Normal 3.5-5.1 [facility] Comment on above: Performed By: #### L 500.4100, L500.4050, L509.3000, L100.0100 #### [facility] [address] [place], [address] Sodium [Moles/Vol] 136 mmol/L Normal 136-145 [facility] Comment on above: Performed By: #### L 500.4100, L500.4050, L509.3000, L100.0100 #### [facility] [address] [place], [address] T PROT 6.8 g/dL Normal 6.4-8.2 [facility] Comment on above: Performed By: #### L 500.4100, L500.4050, L509.3000, L100.0100 #### [facility] [address] [place], [address] Urea nitrogen [Mass/Vol] 15 mg/dL Normal 7-18 [facility] Comment on above: Performed By: #### L 500.4100, L500.4050, L509.3000, L100.0100 #### [facility] [address] [place], [address] Lipid Profileon 12-08-2023 Cholesterol [Mass/Vol] 186 mg/dL Normal 200 [facility] Comment on above: Result Comment: <200 mg/dL Desirable 200-240 mg/dL Borderline >240 mg/dL High Risk Performed By: #### L 500.4100, L500.4050, L509.3000, L100.0100 #### [facility] [address] [place], [address] Cholesterol in HDL [Mass/Vol] 82 mg/dL Normal [facility] Comment on above: Result Comment: The drugs N-Acetylcysteine and Metamizole may falsely depress this assay. Reference Range HDL <40 mg/dL Low HDL Cholesterol HDL >or= 60 mg/dL High HDL Cholesterol Performed By: #### L 500.4100, L500.4050, L509.3000, L100.0100 #### [facility] [address] [place], [address] Cholesterol in LDL [Mass/Vol] 62 mg/dL Normal 0-130 [facility] Comment on above: Performed By: #### L 500.4100, L500.4050, L509.3000, L100.0100 #### [facility] [address] [place], [address] Cholesterol in VLDL [Mass/Vol] 42 mg/dL High 5-40 [facility] Comment on above: Performed By: #### L 500.4100, L500.4050, L509.3000, L100.0100 #### [facility] [address] [place], [address] Triglyceride [Mass/Vol] 208 mg/dL High [facility] Comment on above: Result Comment: The drugs N-Acetylcysteine and Metamizole may falsely depress this assay. Serum Triglycerides Reference Interval Normal <150 mg/dL Borderline high 150 - 199 mg/dL High 200 - 499 mg/dL Very High > or = 500 mg/dL Performed By: #### L 500.4100, L500.4050, L509.3000, L100.0100 #### [facility] [address] [place], [address] Testosterone, Serum Totalon 12-08-2023 Testosterone [Mass/Vol] 565.21 ng/dL Normal [facility] Comment on above: Result Comment: CENT RAL 90% REFERENCE RANGES MALE AGE <50 197.44 - 669.58 ng/dL MALE AGE > or = 50 187.72 - 684.19 ng/dL FEMALE AGE <50 8.38 - 35.01 ng/dL FEMALE AGE > or = 50 <7.00 - 35.92 ng/dL Effective as of 10/14/20 Performed By: #### L 500.4100, L500.4050, L509.3000, L100.0100 #### [facility] [address] [place], [address] PSA Total+%Freeon 08-24-2023 PSA, FREE 1.62 ng/mL Normal N/A [facility] Comment on above: Result Comment: Estrellita wei ECLIA methodology. Performed By: #### L 3110.0500, L100.0500 #### [facility] [address] [place], [place], [id number] PSA, FREE % 32.1 Normal . [facility] Comment on above: Result Comment: The table below lists the probability of prostate cancer for men with non-suspicious RYNE results and total PSA between 4 and 10 ng/mL, by patient age (Ivonne et al, PRECIOUS 1998, 279:1542). % Free PSA 50-64 yr 65-75 yr 0.00-10.00% 56% 55% 10.01-15.00% 24% 35% 15.01-20.00% 17% 23% 20.01-25.00% 10% 20% >25.00% 5% 9% Please note: Ivonne et al did not make specific recommendations regarding the use of percent free PSA for any other population of men. Performed at: [address] [id number] Supervisor Wet Room: Tyson Gooden PhD, Phone: [phone] Performed By: #### L 3110.0500, L100.0500 #### [facility] [address] [place], [place], [id number] PSA, TOTAL ULTR 5.040 ng/mL Abnormal 0.000-4.000 [facility] Comment on above: Result Comment: Estrellita DALAL methodology. According to the [place] [employer], Serum PSA should decrease and remain at undetectable levels after radical prostatectomy. The AUA defines biochemical recurrence as an initial PSA value 0.200 ng/mL or greater followed by a subsequent confirmatory PSA value 0.200 ng/mL or greater. Values obtained with different assay methods or kits cannot be used interchangeably. Results cannot be interpreted as absolute evidence of the presence or absence of malignant disease. Performed By: #### L 3110.0500, L100.0500 #### [facility] [address] [place], [place], [address] CBC-Complete Blood Cnt No Di ffon 08-23-2023 Erythrocyte distribution width (RBC) [Ratio] 13.8 % Normal 11.6-14.6 [facility] Comment on above: Performed By: #### L 3110.0500, L100.0500 #### [facility] [address] [place], [address] Hematocrit (Bld) [Volume fraction] 50.4 % Normal 40-54 [facility] Comment on above: Performed By: #### L 3110.0500, L100.0500 #### [facility] [address] [place], [address] Hemoglobin (Bld) [Mass/Vol] 16.0 g/dL Normal 13.0-16.5 [facility] Comment on above: Performed By: #### L 3110.0500, L100.0500 #### [facility] [address] [place], [address] MCH (RBC) [Entitic mass] 27.0 pg Normal 27.0-32.0 [facility] Comment on above: Performed By: #### L 3110.0500, L100.0500 #### [facility] [address] [place], [address] MCHC (RBC) [Mass/Vol] 31.7 g/dL Low 32-36 [facility] Comment on above: Performed By: #### L 3110.0500, L100.0500 #### [facility] [address] [place], [address] MCV (RBC) [Entitic vol] 85.1 fL Normal 80-94 [facility] Comment on above: Performed By: #### L 3110.0500, L100.0500 #### [facility] [address] [place], [address] Platelet mean volume (Bld) [Entitic vol] 10.2 fL Normal 6.2-12.0 [facility] Comment on above: Performed By: #### L 3110.0500, L100.0500 #### [facility] [address] [place], [address] Platelets (Bld) [#/Vol] 250 10*3/uL Normal 150-450 [facility] Comment on above: Performed By: #### L 3110.0500, L100.0500 #### [facility] [address] [place], [address] RBC (Bld) [#/Vol] 5.92 10*6/uL Normal 4.6-6.2 [facility] Comment on above: Performed By: #### L 3110.0500, L100.0500 #### [facility] [address] [place], [address] RDW SD 42.3 fl Normal 35.1-43.9 [facility] Comment on above: Performed By: #### L 3110.0500, L100.0500 #### [facility] [address] [place], [address] WBC (Bld) [#/Vol] 6.3 10*3/uL Normal 4.4-11.0 [facility] Comment on above: Performed By: #### L 3110.0500, L100.0500 #### [facility] [address] [place], [address] Absolute lymphocyte countOrd ered By: Jere Vinson on 06-09-2023 Lymphocytes Auto (Unsp spec) [#/Vol] 1.59 10*3/uL 0.83-4.51 [facility] Automated lymphocyte count a s percentage of total leukocytesOrdered By: Jere Vinson on 06-09-2023 Lymphocytes/100 WBC Auto (Unsp spec) 21.3 % 19-41 [facility] Basophil percentageOrdered B y: Jere Vinson on 06-09-2023 Basophil percentage 5.44 ng/mL 0.0-4.0 [facility] Comment on above: This test was perfor med using the TPSA assay method for theDimension chemistry system. Values obtained with differentassay methods cannot be used interchangably.When changing PSA assays in the course of monitoring apatient, additional sequential testing should be carriedout to confirm baseline values. Basophils/100 WBC (Bld) 1.1 % 0-1 [facility] Eosinophils/100 WBC (Bld) 1.1 % 0-5 [facility] Hemoglobin (Bld) [Mass/Vol] 15.2 g/dL 13.0-16.5 [facility] Monocytes/100 WBC (Bld) 8.8 % 0-10 [facility] Neutrophils (Bld) [#/Vol] 5.1 10*3/uL 2.0-7.7 [facility] Neutrophils/100 WBC (Bld) 67.4 % 47-70 [facility] Testosterone [Mass/Vol] 801.28 ng/dL [facility] Comment on above: CENTRAL 90% REFERENC E RANGES MALE AGE <50 197.44 - 669.58 ng/dL MALE AGE > or = 50 187.72 - 684.19 ng/dL FEMALE AGE <50 8.38 - 35.01 ng/dL FEMALE AGE > or = 50 <7.00 - 35.92 ng/dL Effective as of 10/14/20 WBC (Bld) [#/Vol] 7.5 10*3/uL 4.4-11.0 [facility] Determination of erythrocyte mean corpuscular volume (MCV)Ordered By: Jere Vinson on 06-09-2023 MCV (RBC) [Entitic vol] 88.2 fL 80-94 [facility] Erythrocyte distribution wid th ratioOrdered By: Jere Vinson on 06-09-2023 Erythrocyte distribution width (RBC) [Ratio] 12.2 % 11.6-14.6 [facility] Erythrocyte distribution wid th standard deviationOrdered By: Jere Vinson on 06-09-2023 Erythrocyte distribution width (RBC) [Entitic vol] 39.8 fL 35.1-43.9 [facility] Hematocrit Auto (Bld) [Volum e fraction]Ordered By: Jere Vinson on 06-09-2023 Hematocrit (Bld) [Volume fraction] 47.3 % 40-54 [facility] Immature granulocytes/100 WB C Auto (Bld)Ordered By: Jere Vinson on 06-09-2023 Immature granulocytes/100 WBC (Bld) 0.300 % 0.0-0.9 [facility] Comment on above: IG% - Immature Granu locytes (promyelocytes, myelocytes and metamyelocytes) > 1% indicates that a LEFT SHIFT is Present. Laboratory - Hematology and Cell countsOrdered By: Jere Vinson on 06-09-2023 MCH (RBC) [Entitic mass] 28.4 pg 27.0-32.0 [facility] MCHC (RBC) [Mass/Vol] 32.1 g/dL 32-36 [facility] Nucleated RBC/100 WBC (Bld) [Ratio] 0 % 0-5 [facility] Platelet mean volume (Bld) [Entitic vol] 11.0 fL 6.2-12.0 [facility] Platelets (Bld) [#/Vol] 293 10*3/uL 150-450 [facility] RBC Auto (Bld) [#/Vol]Ordere d By: Jere Vinson on 06-09-2023 RBC (Bld) [#/Vol] 5.36 10*6/uL 4.6-6.2 [facility] Absolute lymphocyte countOrd ered By: Jere Vinson on 03-04-2023 Lymphocytes Auto (Unsp spec) [#/Vol] 1.33 10*3/uL 0.83-4.51 [facility] Basophil percentageOrdered B y: Jere Vinson on 03-04-2023 Basophils/100 WBC (Bld) 0.6 % 0-1 [facility] Eosinophils/100 WBC (Bld) 0.5 % 0-5 [facility] Neutrophils (Bld) [#/Vol] 6.5 10*3/uL 2.0-7.7 [facility] Neutrophils/100 WBC (Bld) 76.4 % 47-70 [facility] Testosterone [Mass/Vol] 291.62 ng/dL [facility] Comment on above: CENTRAL 90% REFERENC E RANGES MALE AGE <50 197.44 - 669.58 ng/dL MALE AGE > or = 50 187.72 - 684.19 ng/dL FEMALE AGE <50 8.38 - 35.01 ng/dL FEMALE AGE > or = 50 <7.00 - 35.92 ng/dL Effective as of 10/14/20 WBC (Bld) [#/Vol] 8.4 10*3/uL 4.4-11.0 [facility] Blood erythrocytes count (nu mber/volume)Ordered By: Jere Vinson on 03-04-2023 RBC (Bld) [#/Vol] 5.49 10*6/uL 4.6-6.2 [facility] Blood hemoglobin measurement (mass/volume)Ordered By: Jere Vinson on 03-04-2023 Hemoglobin (Bld) [Mass/Vol] 17.2 g/dL 13.0-16.5 [facility] Blood lymphocytes/100 leukoc ytesOrdered By: Jere Vinson on 03-04-2023 Lymphocytes/100 WBC (Bld) 15.8 % 19-41 [facility] Blood monocytes/100 leukocyt esOrdered By: Jere Vinson on 03-04-2023 Monocytes/100 WBC (Bld) 6.3 % 0-10 [facility] Blood platelet mean volumeOr dered By: Jere Vinson on 03-04-2023 Platelet mean volume (Bld) [Entitic vol] 10.4 fL 6.2-12.0 [facility] Determination of erythrocyte mean corpuscular volume (MCV)Ordered By: Jere Vinson on 03-04-2023 MCV (RBC) [Entitic vol] 91.4 fL 80-94 [facility] Hematocrit Auto (Bld) [Volum e fraction]Ordered By: Jere Vinson on 03-04-2023 Hematocrit (Bld) [Volume fraction] 50.2 % 40-54 [facility] - Hematology and Cell countsOrdered By: Jere Vinson on 03-04-2023 Erythrocyte distribution width (RBC) [Entitic vol] 40.0 fL 35.1-43.9 [facility] Erythrocyte distribution width (RBC) [Ratio] 11.9 % 11.6-14.6 [facility] Immature granulocytes/100 WBC (Bld) 0.400 % 0.0-0.9 [facility] Comment on above: IG% - Immature Granu locytes (promyelocytes, myelocytes and metamyelocytes) > 1% indicates that a LEFT SHIFT is Present. MCH (RBC) [Entitic mass] 31.3 pg 27.0-32.0 [facility] Nucleated RBC/100 WBC (Bld) [Ratio] 0 % 0-5 [facility] MCHC Auto (RBC) [Mass/Vol]Or dered By: Jere Vinson on 03-04-2023 MCHC (RBC) [Mass/Vol] 34.3 g/dL 32-36 [facility] No Panel InformationOrdered By: Jere Vinson on 03-04-2023 Follicle Stimulating Hormone 6.7 mIU/mL [facility] Comment on above: NORMAL REFERENCE RAN GES FEMALE FOLLICULAR 2.3 - 12.6 mIU/mL MID-CYCLE PEAK 5.2 - 17.5 mIU/mL LUTEAL 1.7 - 12.9 mIU/mL POST-MENOPAUSAL ON MHT 5.9 - 72.8 mIU/mL NOT ON MHT 12.7 - 132.2 mlU/mL MALE 0.7 - 10.8 mIU/mL Luteinizing Hormone 1.5 mIU/mL [facility] Comment on above: NORMAL REFERENCE RAN GES FEMALE FOLLICULAR 1.9 - 26.2 mIU/mL MID-CYCLE PEAK 22.8 - 76.1 mIU/mL LUTEAL 0.6 - 16.6 mIU/mL POST-MENOPAUSAL ON MHT 1.1 - 52.4 mIU/mL NOT ON MHT 8.6 - 61.8 mIU/mL MALE 1.2 - 10.6 mIU/mL No Panel InformationOrdered By: Rikki Aceves on 03-04-2023 Percent Free Prostate Specific Ag 1.74 ng/mL N/A [facility] Comment on above: Anthony ECLIA methodol ogy. Prostate Specific Ag, Ultra-Sensitv 6.930 ng/mL 0.000-4.000 [facility] Comment on above: Anthony ECLIA methodol ogy.According to the [place] [employer], Serum PSAshould decrease and remain at undetectable levels afterradical prostatectomy. The AUA defines biochemicalrecurrence as an initial PSA value 0.200 ng/mL or greaterfollowed by a subsequent confirmatory PSA value 0.200 ng/mLor greater. Values obtained with different assay methods orkits cannot be used interchangeably. Results cannot beinterpreted as absolute evidence of the presence or absenceof malignant disease. Platelets bldOrdered By: Iveth Vinson on 03-04-2023 Platelets (Bld) [#/Vol] 244 10*3/uL 150-450 [facility] Serum or plasma free prostat e specific antigen/total prostate specific antigen ratioOrdered By: Rikki Aceves on 03-04-2023 Free PSA/Total PSA [Mass fraction] 25.1 % . [facility] Comment on above: The table below list s the probability of prostate cancer formen with non-suspicious RYNE results and total PSA between4 and 10 ng/mL, by patient age (Ivonne et al, PRECIOUS 1998,279:1542). % Free PSA 50-64 yr 65-75 yr 0.00-10.00% 56% 55% 10.01-15.00% 24% 35% 15.01-20.00% 17% 23% 20.01-25.00% 10% 20% >25.00% 5% 9%Please note: Ivonne et al did not make specific recommendations regarding the use of percent free PSA for any other population of men.Performed at: [facility] [id number] Director: Tyson Gooden PhD, Phone: [phone] Basophil percentageOrdered B y: Rikki Aceves on 02-04-2023 Basophil percentage < 0.9 mg/dL 0.70-1.30 [facility] No Panel InformationOrdered By: Rikki Aceves on 02-04-2023 Bedside Estimated GFR (eGFR) > 60.0000 mL/min >60 [facility] Absolute lymphocyte countOrd ered By: Jere Vinson on 01-06-2023 Lymphocytes Auto (Unsp spec) [#/Vol] 1.38 10*3/uL 0.83-4.51 [facility] Basophil percentageOrdered B y: Jere Vinson on 01-06-2023 Basophils/100 WBC (Bld) 0.8 % 0-1 [facility] Eosinophils/100 WBC (Bld) 1.3 % 0-5 [facility] Neutrophils (Bld) [#/Vol] 3.8 10*3/uL 2.0-7.7 [facility] Neutrophils/100 WBC (Bld) 63.6 % 47-70 [facility] Testosterone [Mass/Vol] 199.86 ng/dL [facility] Comment on above: CENTRAL 90% REFERENC E RANGES MALE AGE <50 197.44 - 669.58 ng/dL MALE AGE > or = 50 187.72 - 684.19 ng/dL FEMALE AGE <50 8.38 - 35.01 ng/dL FEMALE AGE > or = 50 <7.00 - 35.92 ng/dL Effective as of 10/14/20 WBC (Bld) [#/Vol] 6.0 10*3/uL 4.4-11.0 [facility] Blood erythrocytes count (nu mber/volume)Ordered By: Jere Vinson on 01-06-2023 RBC (Bld) [#/Vol] 5.33 10*6/uL 4.6-6.2 [facility] Blood hemoglobin measurement (mass/volume)Ordered By: Jere Vinson on 01-06-2023 Hemoglobin (Bld) [Mass/Vol] 16.6 g/dL 13.0-16.5 [facility] Blood lymphocytes/100 leukoc ytesOrdered By: Jere Vinson on 01-06-2023 Lymphocytes/100 WBC (Bld) 23.0 % 19-41 [facility] Blood monocytes/100 leukocyt esOrdered By: Jere Vinson on 01-06-2023 Monocytes/100 WBC (Bld) 11.0 % 0-10 [facility] Blood platelet mean volumeOr dered By: Jere Vinson on 01-06-2023 Platelet mean volume (Bld) [Entitic vol] 10.7 fL 6.2-12.0 [facility] Determination of erythrocyte mean corpuscular volume (MCV)Ordered By: Jere Vinson on 01-06-2023 MCV (RBC) [Entitic vol] 91.4 fL 80-94 [facility] Hematocrit Auto (Bld) [Volum e fraction]Ordered By: Jere Vinson on 01-06-2023 Hematocrit (Bld) [Volume fraction] 48.7 % 40-54 [facility] - Hematology and Cell countsOrdered By: Jere Vinson on 01-06-2023 Erythrocyte distribution width (RBC) [Entitic vol] 42.6 fL 35.1-43.9 [facility] Erythrocyte distribution width (RBC) [Ratio] 12.8 % 11.6-14.6 [facility] Immature granulocytes/100 WBC (Bld) 0.300 % 0.0-0.9 [facility] Comment on above: IG% - Immature Granu locytes (promyelocytes, myelocytes and metamyelocytes) > 1% indicates that a LEFT SHIFT is Present. MCH (RBC) [Entitic mass] 31.1 pg 27.0-32.0 [facility] Nucleated RBC/100 WBC (Bld) [Ratio] 0 % 0-5 [facility] MCHC Auto (RBC) [Mass/Vol]Or dered By: Jere Vinson on 01-06-2023 MCHC (RBC) [Mass/Vol] 34.1 g/dL 32-36 [facility] No Panel InformationOrdered By: Jere Vinson on 01-06-2023 Prostate Specific Antigen Total 8.21 ng/mL 0.0-4.0 [facility] Comment on above: This test was perfor med using the TPSA assay method for theVistaar chemistry system. Values obtained with differentassay methods cannot be used interchangably.When changing PSA assays in the course of monitoring apatient, additional sequential testing should be carriedout to confirm baseline values. Platelets bldOrdered By: Iveth Vinson on 01-06-2023 Platelets (Bld) [#/Vol] 254 10*3/uL 150-450 [facility] Absolute lymphocyte countOrd ered By: Jere Vinson on 10-07-2022 Lymphocytes Auto (Unsp spec) [#/Vol] 1.09 10*3/uL 0.83-4.51 [facility] Basophil percentageOrdered B y: Jere Vinson on 10-07-2022 Basophils/100 WBC (Bld) 0.8 % 0-1 [facility] Eosinophils/100 WBC (Bld) 0.8 % 0-5 [facility] Neutrophils (Bld) [#/Vol] 5.9 10*3/uL 2.0-7.7 [facility] Neutrophils/100 WBC (Bld) 76.7 % 47-70 [facility] Testosterone [Mass/Vol] 119.14 ng/dL [facility] Comment on above: CENTRAL 90% REFERENC E RANGES MALE AGE <50 197.44 - 669.58 ng/dL MALE AGE > or = 50 187.72 - 684.19 ng/dL FEMALE AGE <50 8.38 - 35.01 ng/dL FEMALE AGE > or = 50 <7.00 - 35.92 ng/dL Effective as of 10/14/20 WBC (Bld) [#/Vol] 7.7 10*3/uL 4.4-11.0 [facility] Blood erythrocytes count (nu mber/volume)Ordered By: Jere Vinson on 10-07-2022 RBC (Bld) [#/Vol] 5.59 10*6/uL 4.6-6.2 [facility] Blood hemoglobin measurement (mass/volume)Ordered By: Jere Vinson on 10-07-2022 Hemoglobin (Bld) [Mass/Vol] 17.2 g/dL 13.0-16.5 [facility] Blood lymphocytes/100 leukoc ytesOrdered By: Jere Vinson on 10-07-2022 Lymphocytes/100 WBC (Bld) 14.2 % 19-41 [facility] Blood monocytes/100 leukocyt esOrdered By: Jere Vinson on 10-07-2022 Monocytes/100 WBC (Bld) 7.2 % 0-10 [facility] Blood platelet mean volumeOr dered By: Jere Vinson on 10-07-2022 Platelet mean volume (Bld) [Entitic vol] 10.6 fL 6.2-12.0 [facility] Determination of erythrocyte mean corpuscular volume (MCV)Ordered By: Jere Vinson on 10-07-2022 MCV (RBC) [Entitic vol] 93.6 fL 80-94 [facility] Hematocrit Auto (Bld) [Volum e fraction]Ordered By: Jere Vinson on 10-07-2022 Hematocrit (Bld) [Volume fraction] 52.3 % 40-54 [facility] - Hematology and Cell countsOrdered By: Jere Vinson on 10-07-2022 Erythrocyte distribution width (RBC) [Entitic vol] 42.1 fL 35.1-43.9 [facility] Erythrocyte distribution width (RBC) [Ratio] 12.1 % 11.6-14.6 [facility] Immature granulocytes/100 WBC (Bld) 0.300 % 0.0-0.9 [facility] Comment on above: IG% - Immature Granu locytes (promyelocytes, myelocytes and metamyelocytes) > 1% indicates that a LEFT SHIFT is Present. MCH (RBC) [Entitic mass] 30.8 pg 27.0-32.0 [facility] Nucleated RBC/100 WBC (Bld) [Ratio] 0 % 0-5 [facility] MCHC Auto (RBC) [Mass/Vol]Or dered By: Jere Vinson on 10-07-2022 MCHC (RBC) [Mass/Vol] 32.9 g/dL 32-36 [facility] No Panel InformationOrdered By: Jere Vinson on 10-07-2022 Follicle Stimulating Hormone 1.9 mIU/mL [facility] Comment on above: NORMAL REFERENCE RAN [facility] FEMALE FOLLICULAR 2.3 - 12.6 mIU/mL MID-CYCLE PEAK 5.2 - 17.5 mIU/mL LUTEAL 1.7 - 12.9 mIU/mL POST-MENOPAUSAL ON MHT 5.9 - 72.8 mIU/mL NOT ON MHT 12.7 - 132.2 mlU/mL MALE 0.7 - 10.8 mIU/mL Luteinizing Hormone 0.3 mIU/mL [facility] Comment on above: NORMAL REFERENCE [facility] FEMALE FOLLICULAR 1.9 - 26.2 mIU/mL MID-CYCLE PEAK 22.8 - 76.1 mIU/mL LUTEAL 0.6 - 16.6 mIU/mL POST-MENOPAUSAL ON MHT 1.1 - 52.4 mIU/mL NOT ON MHT 8.6 - 61.8 mIU/mL MALE 1.2 - 10.6 mIU/mL Platelets bldOrdered By: Iveth Vinson on 10-07-2022 Platelets (Bld) [#/Vol] 236 10*3/uL 150-450 [facility] Absolute lymphocyte countOrd ered By: Jere Vinson on 09-17-2022 Lymphocytes Auto (Unsp spec) [#/Vol] 1.02 10*3/uL 0.83-4.51 [facility] Basophil percentageOrdered B y: Jere Vinson on 09-17-2022 Basophils/100 WBC (Bld) 0.9 % 0-1 [facility] Eosinophils/100 WBC (Bld) 0.9 % 0-5 [facility] Neutrophils (Bld) [#/Vol] 3.8 10*3/uL 2.0-7.7 [facility] Neutrophils/100 WBC (Bld) 70.9 % 47-70 [facility] Testosterone [Mass/Vol] 391.95 ng/dL [facility] Comment on above: CENTRAL 90% REFERENC E RANGES MALE AGE <50 197.44 - 669.58 ng/dL MALE AGE > or = 50 187.72 - 684.19 ng/dL FEMALE AGE <50 8.38 - 35.01 ng/dL FEMALE AGE > or = 50 <7.00 - 35.92 ng/dL Effective as of 10/14/20 WBC (Bld) [#/Vol] 5.4 10*3/uL 4.4-11.0 [facility] Blood erythrocytes count (nu mber/volume)Ordered By: Jere Vinson on 09-17-2022 RBC (Bld) [#/Vol] 5.92 10*6/uL 4.6-6.2 [facility] Blood hemoglobin measurement (mass/volume)Ordered By: Jere Vinson on 09-17-2022 Hemoglobin (Bld) [Mass/Vol] 18.6 g/dL 13.0-16.5 [facility] Comment on above: CRITICAL VALUE VERIF IED. CALLED TO CHAN CABEZAS (PLAB)09/17/22 1139 Tyler Jean.RESULTS READ BACK BY SAME. Blood lymphocytes/100 leukoc ytesOrdered By: Jere Vinson on 09-17-2022 Lymphocytes/100 WBC (Bld) 18.8 % 19-41 [facility] Blood monocytes/100 leukocyt esOrdered By: Jere Vinson on 09-17-2022 Monocytes/100 WBC (Bld) 8.1 % 0-10 [facility] Blood platelet mean volumeOr dered By: Jere Vinson on 09-17-2022 Platelet mean volume (Bld) [Entitic vol] 10.9 fL 6.2-12.0 [facility] Determination of erythrocyte mean corpuscular volume (MCV)Ordered By: Jere Vinson on 09-17-2022 MCV (RBC) [Entitic vol] 93.6 fL 80-94 [facility] Hematocrit Auto (Bld) [Volum e fraction]Ordered By: Jere Vinson on 09-17-2022 Hematocrit (Bld) [Volume fraction] 55.4 % 40-54 [facility] Laboratory - Hematology and Cell countsOrdered By: Jere Vinson on 09-17-2022 Erythrocyte distribution width (RBC) [Entitic vol] 41.1 fL 35.1-43.9 [facility] Erythrocyte distribution width (RBC) [Ratio] 11.9 % 11.6-14.6 [facility] Immature granulocytes/100 WBC (Bld) 0.400 % 0.0-0.9 [facility] Comment on above: IG% - Immature Granu locytes (promyelocytes, myelocytes and metamyelocytes) > 1% indicates that a LEFT SHIFT is Present. MCH (RBC) [Entitic mass] 31.4 pg 27.0-32.0 [facility] Nucleated RBC/100 WBC (Bld) [Ratio] 0 % 0-5 [facility] MCHC Auto (RBC) [Mass/Vol]Or dered By: Jere Vinson on 09-17-2022 MCHC (RBC) [Mass/Vol] 33.6 g/dL 32-36 [facility] No Panel InformationOrdered By: Jere Vinson on 09-17-2022 Prostate Specific Antigen Total 4.02 ng/mL 0.0-4.0 [facility] Comment on above: This test was perfor med using the TPSA assay method [facility] the[facility]. Values obtained with differentassay methods cannot be used interchangably.When changing PSA assays in the course of monitoring apatient, additional sequential testing should be carriedout to confirm baseline values. Platelets bldOrdered By: Iveth Vinson on 09-17-2022 Platelets (Bld) [#/Vol] 227 10*3/uL 150-450 [facility] Review by pathologistOrdered By: Jere Vinson on 09-17-2022 Pathologist review Bhavesh (Unsp spec) [Interp] Reviewed [facility] Comment on above: PolycythemiaClinical correlation necessary.Shiraz Valiente M.D. 07/03/23 Absolute lymphocyte countOrd ered By: Dr. Vinson on 06-18-2022 Lymphocytes Auto (Unsp spec) [#/Vol] 1.23 10*3/uL 0.83-4.51 [facility] Basophil percentageOrdered B y: Dr. Vinson on 06-18-2022 Basophils/100 WBC (Bld) 0.8 % 0-1 [facility] Eosinophils/100 WBC (Bld) 1.3 % 0-5 [facility] Neutrophils (Bld) [#/Vol] 4.4 10*3/uL 2.0-7.7 [facility] Neutrophils/100 WBC (Bld) 69.2 % 47-70 [facility] WBC (Bld) [#/Vol] 6.3 10*3/uL 4.4-11.0 [facility] Blood erythrocytes count (nu mber/volume)Ordered By: Dr. Vinson on 06-18-2022 RBC (Bld) [#/Vol] 5.49 10*6/uL 4.6-6.2 [facility] Blood hemoglobin measurement (mass/volume)Ordered By: Dr. Vinson on 06-18-2022 Hemoglobin (Bld) [Mass/Vol] 17.2 g/dL 13.0-16.5 [facility] Blood lymphocytes/100 leukoc ytesOrdered By: Dr. Vinson on 06-18-2022 Lymphocytes/100 WBC (Bld) 19.5 % 19-41 [facility] Blood monocytes/100 leukocyt esOrdered By: Dr. Vinson on 06-18-2022 Monocytes/100 WBC (Bld) 8.9 % 0-10 [facility] Blood platelet mean volumeOr dered By: Dr. Vinson on 06-18-2022 Platelet mean volume (Bld) [Entitic vol] 10.8 fL 6.2-12.0 [facility] Determination of erythrocyte mean corpuscular volume (MCV)Ordered By: Dr. Vinson on 06-18-2022 MCV (RBC) [Entitic vol] 92.7 fL 80-94 [facility] Hematocrit Auto (Bld) [Volum e fraction]Ordered By: Dr. Vinson on 06-18-2022 Hematocrit (Bld) [Volume fraction] 50.9 % 40-54 [facility] Laboratory - Hematology and Cell countsOrdered By: Dr. Vinson on 06-18-2022 Erythrocyte distribution width (RBC) [Entitic vol] 44.7 fL 35.1-43.9 [facility] Erythrocyte distribution width (RBC) [Ratio] 13.1 % 11.6-14.6 [facility] Immature granulocytes/100 WBC (Bld) 0.300 % 0.0-0.9 [facility] Comment on above: IG% - Immature Granu locytes (promyelocytes, myelocytes and metamyelocytes) > 1% indicates that a LEFT SHIFT is Present. MCH (RBC) [Entitic mass] 31.3 pg 27.0-32.0 [facility] Nucleated RBC/100 WBC (Bld) [Ratio] 0 % 0-5 [facility] MCHC Auto (RBC) [Mass/Vol]Or dered By: Dr. Vinson on 06-18-2022 MCHC (RBC) [Mass/Vol] 33.8 g/dL 32-36 [facility] Platelets bldOrdered By: Dr. Vinson on 06-18-2022 Platelets (Bld) [#/Vol] 243 10*3/uL 150-450 [facility] Absolute lymphocyte countOrd ered By: Dr. Vinson on 06-04-2022 Lymphocytes Auto (Unsp spec) [#/Vol] 1.38 10*3/uL 0.83-4.51 [facility] Basophil percentageOrdered B y: Dr. Vinson on 06-04-2022 Basophils/100 WBC (Bld) 0.8 % 0-1 [facility] Eosinophils/100 WBC (Bld) 1.4 % 0-5 [facility] Neutrophils (Bld) [#/Vol] 4.3 10*3/uL 2.0-7.7 [facility] Neutrophils/100 WBC (Bld) 66.9 % 47-70 [facility] WBC (Bld) [#/Vol] 6.5 10*3/uL 4.4-11.0 [facility] Blood erythrocytes count (nu mber/volume)Ordered By: Dr. Vinson on 06-04-2022 RBC (Bld) [#/Vol] 5.80 10*6/uL 4.6-6.2 [facility] Blood hemoglobin measurement (mass/volume)Ordered By: Dr. Vinson on 06-04-2022 Hemoglobin (Bld) [Mass/Vol] 18.0 g/dL 13.0-16.5 [facility] Blood lymphocytes/100 leukoc ytesOrdered By: Dr. Vinson on 06-04-2022 Lymphocytes/100 WBC (Bld) 21.4 % 19-41 [facility] Blood monocytes/100 leukocyt esOrdered By: Dr. Vinson on 06-04-2022 Monocytes/100 WBC (Bld) 9.0 % 0-10 [facility] Blood platelet mean volumeOr dered By: Dr. Vinson on 06-04-2022 Platelet mean volume (Bld) [Entitic vol] 10.7 fL 6.2-12.0 [facility] Determination of erythrocyte mean corpuscular volume (MCV)Ordered By: Dr. Vinson on 06-04-2022 MCV (RBC) [Entitic vol] 93.8 fL 80-94 [facility] Hematocrit Auto (Bld) [Volum e fraction]Ordered By: Dr. Vinson on 06-04-2022 Hematocrit (Bld) [Volume fraction] 54.4 % 40-54 [facility] Laboratory - Hematology and Cell countsOrdered By: Dr. Vinson on 06-04-2022 Erythrocyte distribution width (RBC) [Entitic vol] 44.8 fL 35.1-43.9 [facility] Erythrocyte distribution width (RBC) [Ratio] 13.1 % 11.6-14.6 [facility] Immature granulocytes/100 WBC (Bld) 0.500 % 0.0-0.9 [facility] Comment on above: IG% - Immature Granu locytes (promyelocytes, myelocytes and metamyelocytes) > 1% indicates that a LEFT SHIFT is Present. MCH (RBC) [Entitic mass] 31.0 pg 27.0-32.0 [facility] Nucleated RBC/100 WBC (Bld) [Ratio] 0 % 0-5 [facility] MCHC Auto (RBC) [Mass/Vol]Or dered By: Dr. Vinson on 06-04-2022 MCHC (RBC) [Mass/Vol] 33.1 g/dL 32-36 [facility] Platelets bldOrdered By: Dr. Vinson on 06-04-2022 Platelets (Bld) [#/Vol] 216 10*3/uL 150-450 [facility] Review by pathologistOrdered By: Dr. Vinson on 06-04-2022 Pathologist review Bhavesh (Unsp spec) [Interp] Reviewed [facility] Comment on above: Previous reported re sult: Dot pat Edited by: RGOCHERYL on 06/08/22:0852Polycythemia Clinical correlation necessary.Shiraz Valiente M.D. 06/08/22 AMENDED REPORT 06/08/22 0852 PATH REV previously reported as: July bi Absolute lymphocyte countOrd ered By: Dr. Vinson on 04-23-2022 Lymphocytes Auto (Unsp spec) [#/Vol] 1.34 10*3/uL 0.83-4.51 [facility] Basophil percentageOrdered B y: Dr. Vinson on 04-23-2022 Basophils/100 WBC (Bld) 0.7 % 0-1 [facility] Chloride [Moles/Vol] 105 mmol/L 98-107 [facility] Eosinophils/100 WBC (Bld) 1.0 % 0-5 [facility] Glucose [Mass/Vol] 97 mg/dL 74-106 [facility] Neutrophils (Bld) [#/Vol] 3.9 10*3/uL 2.0-7.7 [facility] Neutrophils/100 WBC (Bld) 67.0 % 47-70 [facility] Potassium [Moles/Vol] 4.1 mmol/L 3.5-5.1 [facility] Sodium [Moles/Vol] 139 mmol/L 136-145 [facility] Testosterone [Mass/Vol] 91.73 ng/dL [facility] Comment on above: CENTRAL 90% REFERENC E RANGES MALE AGE <50 197.44 - 669.58 ng/dL MALE AGE > or = 50 187.72 - 684.19 ng/dL FEMALE AGE <50 8.38 - 35.01 ng/dL FEMALE AGE > or = 50 <7.00 - 35.92 ng/dL Effective as of 10/14/20 WBC (Bld) [#/Vol] 5.9 10*3/uL 4.4-11.0 [facility] Blood erythrocytes count (nu mber/volume)Ordered By: Dr. Vinson on 04-23-2022 RBC (Bld) [#/Vol] 6.12 10*6/uL 4.6-6.2 [facility] Blood hemoglobin measurement (mass/volume)Ordered By: Dr. Vinson on 04-23-2022 Hemoglobin (Bld) [Mass/Vol] 18.9 g/dL 13.0-16.5 [facility] Comment on above: CRITICAL VALUE VERIF IED. CALLED TO ASHISH CABEZAS (PLAB)04/23/22 1008 Tyler Jean.RESULTS READ BACK BY SAME. Blood lymphocytes/100 leukoc ytesOrdered By: Dr. Vinson on 04-23-2022 Lymphocytes/100 WBC (Bld) 22.8 % 19-41 [facility] Blood monocytes/100 leukocyt esOrdered By: Dr. Vinson on 04-23-2022 Monocytes/100 WBC (Bld) 8.0 % 0-10 [facility] Blood platelet mean volumeOr dered By: Dr. Vinson on 04-23-2022 Platelet mean volume (Bld) [Entitic vol] 10.3 fL 6.2-12.0 [facility] Determination of erythrocyte mean corpuscular volume (MCV)Ordered By: Dr. Vinson on 04-23-2022 MCV (RBC) [Entitic vol] 89.4 fL 80-94 [facility] Hematocrit Auto (Bld) [Volum e fraction]Ordered By: Dr. Vinson on 04-23-2022 Hematocrit (Bld) [Volume fraction] 54.7 % 40-54 [facility] Laboratory - Chemistry and C hemistry - challengeOrdered By: Dr. Vinson on 04-23-2022 CO2 [Moles/Vol] 25.0 mmol/L 21.0-32.0 [facility] Urea nitrogen/Creatinine [Mass ratio] 18.2 mg/mg 10-20 [facility] - Hematology and Cell countsOrdered By: Dr. Vinson on 04-23-2022 Erythrocyte distribution width (RBC) [Entitic vol] 41.9 fL 35.1-43.9 [facility] Erythrocyte distribution width (RBC) [Ratio] 12.9 % 11.6-14.6 [facility] Immature granulocytes/100 WBC (Bld) 0.500 % 0.0-0.9 [facility] Comment on above: IG% - Immature Granu locytes (promyelocytes, myelocytes and metamyelocytes) > 1% indicates that a LEFT SHIFT is Present. MCH (RBC) [Entitic mass] 30.9 pg 27.0-32.0 [facility] Nucleated RBC/100 WBC (Bld) [Ratio] 0 % 0-5 [facility] MCHC Auto (RBC) [Mass/Vol]Or dered By: Dr. Vinson on 04-23-2022 MCHC (RBC) [Mass/Vol] 34.6 g/dL 32-36 [facility] No Panel InformationOrdered By: Dr. Vinson on 04-23-2022 Estimated GFR (MDRD) Amer 142 mL/min >60 [facility] Comment on above: GFR Calc Estimated GFR (MDRD) Non-Af Amer 117 mL/min >60 [facility] Comment on above: Non- GFR Calc Prostate Specific Antigen Total 4.28 ng/mL 0.0-4.0 [facility] Comment on above: This test was perfor med using the TPSA assay method for the[facility] chemistry system. Values obtained with differentassay methods cannot be used interchangably.When changing PSA assays in the course of monitoring apatient, additional sequential testing should be carriedout to confirm baseline values. Platelets bldOrdered By: Dr. Vinson on 04-23-2022 Platelets (Bld) [#/Vol] 223 10*3/uL 150-450 [facility] Review by pathologistOrdered By: Dr. Vinson on 04-23-2022 Pathologist review Bhavesh (Unsp spec) [Interp] Reviewed [facility] Comment on above: Previous reported re sult: Dot pat Edited by: RGOCHERYL on 04/27/22:[id number] Clinical correlation necessary.Shiraz Valiente M.D. 04/27/22 AMENDED REPORT 04/27/22 0928 PATH REV previously reported as: Dot pat Serum or plasma calcium raegan urement (mass/volume)Ordered By: Dr. Vinson on 04-23-2022 Calcium [Mass/Vol] 9.5 mg/dL 8.5-10.1 [facility] Serum or plasma creatinine m easurement (mass/volume)Ordered By: Dr. Vinson on 04-23-2022 Creatinine [Mass/Vol] 0.72 mg/dL 0.70-1.30 [facility] Comment on above: The validity of the calculated GFR & GFRAA in patients over 70 years has not been determined. Clinical correlation is essential. Serum or plasma urea nitroge n measurement (mass/volume)Ordered By: Dr. Vinson on 04-23-2022 Urea nitrogen [Mass/Vol] 13 mg/dL 7-18 [facility] Thin prep Papanicolaou smear with manual screeningOrdered By: Dr. Vinson on 04-23-2022 Thin prep Papanicolaou smear with manual screening 9 5-15 [facility] Basophil percentageon 2021 Chloride [Moles/Vol] 108 mmol/L 98-107 [facility] Work Phone: Glucose [Mass/Vol] 96 mg/dL 74-106 [facility] Work Phone: Potassium [Moles/Vol] 4.5 mmol/L 3.5-5.1 [facility] Work Phone: Comment on above: Moderate Hemolysis, Result may be falsely increased. Sodium [Moles/Vol] 136 mmol/L 136-145 [facility] Work Phone: Testosterone [Mass/Vol] 177.13 ng/dL [facility] Work Phone: Comment on above: CENTRAL 90% REFERENC E RANGES MALE AGE <50 197.44 - 669.58 ng/dL MALE AGE > or = 50 187.72 - 684.19 ng/dL FEMALE AGE <50 8.38 - 35.01 ng/dL FEMALE AGE > or = 50 <7.00 - 35.92 ng/dL Effective as of 10/14/20 Laboratory - Chemistry and C hemistry - challengeon 10-21-2021 CO2 [Moles/Vol] 24.0 mmol/L 21.0-32.0 [facility] Work Phone: Urea nitrogen/Creatinine [Mass ratio] 24.3 mg/mg 10-20 [facility] Work Phone: No Panel Informationon 10-21 Estimated GFR (MDRD) Amer 137 mL/min >60 [facility] Work Phone: Comment on above: GFR Calc Estimated GFR (MDRD) Non-Af Amer 113 mL/min >60 [facility] Work Phone: Comment on above: Non- GFR Calc Serum or plasma calcium raegan urement (mass/volume)on 10-21-2021 Calcium [Mass/Vol] 9.0 mg/dL 8.5-10.1 [facility] Work Phone: Serum or plasma creatinine m easurement (mass/volume)on 10-21-2021 Creatinine [Mass/Vol] 0.74 mg/dL 0.70-1.30 [facility] Work Phone: Comment on above: The validity of the calculated GFR & GFRAA in patients over 70 years has not been determined. Clinical correlation is essential. Serum or plasma urea nitroge n measurement (mass/volume)on 10-21-2021 Urea nitrogen [Mass/Vol] 18 mg/dL 7-18 [facility] Work Phone: Thin prep Papanicolaou smear with manual screeningon 10-21-2021 Thin prep Papanicolaou smear with manual screening 4 5-15 [facility] Work Phone: Vital Signs Date Time Vital Sign Value Performing Clinician Shobhai freddy 07-17-2024 13:10-0400 Body height 189.2 cm Vitaliy Palacio MD Work Phone: [facility] 07-17-2024 13:10-0400 Body mass index (BMI) [Ratio] 24.95 kg/m2 Vitaliy Palacio MD Work Phone: [facility] 07-17-2024 13:10-0400 Body temperature 99.1 [degF] Vitaliy Palacio MD Work Phone: [facility] 07-17-2024 13:10-0400 Body weight 89.36 kg Vitaliy Palacio MD Work Phone: [facility] 07-17-2024 13:10-0400 Diastolic blood pressure 74 mm[Hg] Vitaliy Palacio MD Work Phone: [facility] 07-17-2024 13:10-0400 Heart rate 101 /min Vitaliy Palacio MD Work Phone: [facility] 07-17-2024 13:10-0400 SaO2% (BldA) [Mass fraction] 98 % Vitaliy Palacio MD Work Phone: [facility] 07-17-2024 13:10-0400 Systolic blood pressure 136 mm[Hg] Vitaliy Palacio MD Work Phone: [facility] Encounters Encounter Date Encounter Type Care Provider Facility Start: 07-30-2024 End: 07-30-2024 ambulatory JERE VINSON Facility:[facility] Start: 07-19-2024 End: 07-27-2024 ambulatory Vitaliy Palacio MD Work Phone: Endocrinology Comment on above: SQ vs IM Cypionate Start: 07-17-2024 End: 07-17-2024 Patient encounter procedure Vitaliy Palacio MD Work Phone: Endocrinology Comment on above: Hypogonadism in male (Primary Dx) Start: 07-17-2024 End: 07-17-2024 ambulatory VITALIY PALACIO Facility:[facility] Start: 06-22-2024 End: 06-22-[address] Jere Vinson MD Work Phone: [facility] Work Phone: Start: 06-22-2024 End: 06-22-[address] Jere Vinson MD -Laboratory, [facility] Start: 06-22-2024 End: 04-04-2025 ambulatory Jere Vinson Facility:[facility] Start: 03-08-2024 End: 03-08-[address] [facility] Start: 03-08-2024 End: 03-08-2024 ambulatory Jere Vinson Facility:[facility] Start: 12-08-2023 End: 12-08-2023 ambulatory Jere Vinson Facility:[facility] Start: 08-23-2023 End: 08-23-2023 ambulatory Jere Vinson Facility:[facility] Start: 06-09-2023 End: 06-09-2023 ambulatory [facility] Work Phone: Start: 06-09-2023 End: 06-09-2023 [facility] Start: 03-04-2023 End: 03-04-2023 ambulatory [facility] Work Phone: Start: 03-04-2023 End: 03-04-2023 Patient encounter procedure [facility] Work Phone: Start: 02-04-2023 End: 02-04-2023 Patient encounter procedure [facility]-Cat Scan, [facility] Work Phone: Start: 01-06-2023 End: 01-06-2023 ambulatory [facility] Work Phone: Start: 01-06-2023 End: 01-06-2023 [facility] Start: 10-07-2022 End: 10-07-2022 [facility] Start: 09-17-2022 End: 09-17-2022 ambulatory [facility] Work Phone: Start: 09-17-2022 End: 09-17-2022 [facility] Start: 06-18-2022 End: 06-18-2022 ambulatory [facility] Work Phone: Start: 06-18-2022 End: 06-18-2022 Patient encounter procedure [facility] Start: 06-04-2022 End: 06-04-2022 ambulatory [facility] Work Phone: Start: 06-04-2022 End: 06-04-2022 Patient encounter procedure [facility] Start: 04-23-2022 End: 04-23-2022 ambulatory [facility] Work Phone: Start: 04-23-2022 End: 04-23-2022 Patient encounter procedure [facility] Start: 10-21-2021 End: 10-21-2021 Patient encounter procedure [facility] Start: 06-18-2020 End: 06-18-2020 Patient encounter procedure ADALGISA NYECELY [facility] Start: 05-27-2020 End: 05-27-2020 Patient encounter procedure PHYSICIAN KESHAWN [facility] Start: 05-27-2020 End: 05-27-2020 Patient encounter procedure China Cruz [facility] [place] [facility] Procedures Date Procedure Procedure Detail Performing Clinician Start: 02-04-2023 Computed tomography of abdomen and pelvis with intravenous contrast Start: 12-09-2005 Colonoscopy Vitaliy boyle MD Work Phone: Plan of Treatment Date Care Activity Detail Author Start: 04-14-2030 Urine microalbumin profile DTaP,Tdap,Td Vaccine (2 - Td or Tdap) [facility] Start: 07-19-2029 Prostate specific antigen measurement Prostate Cancer Screening Discussion [facility] Start: 11-16-2024 End: 11-16-2024 Patient encounter procedure 11/16/2024 9:20 AM EDT Office Visit Endocrinology [address] [place] [id number] Vitaliy Palacio MD [address] [place] [id number] 4 months follow up Endocrinology Comment on above: 4 months follow up Start: 07-30-2024 End: 07-30-2024 Nursing evaluation of patient and report 07/30/2024 9:30 AM EDT Nurse Visit Endocrinology [address] [place] [address] Wstr, Nurse Endo [facility] [address] [place] [address] per my chart learn how to give self testosterone injection Endocrinology Comment on above: per my chart learn h ow to give self testosterone injection Start: 06-20-2024 Covid-19 Vaccine () Covid-19 Vaccine () [facility] Start: 03-21-2024 Advance Directive Discussion Advance Directive Discussion [facility] Start: 06-18-2020 End: 06-18-2020 Immunization 06/18/2020 Immunization Primary Care [place] isaacs MD [facility] [place] [address] [facility] [place] Covid Vaccine [facility] Start: 06-17-2020 COVID-19 Vaccine (2 of 2 - Pfizer series) COVID-19 Vaccine (2 of 2 - Pfizer series) [facility] Start: 11-20-2019 Influenza vaccinatio n given Sequential Influenza Vaccine (#1) [facility] Start: 12-10-2015 Screening for malign ant neoplasm of colon [facility] Start: 2007 Administration of he rpes zoster vaccine Zoster Vaccines (1 of 2) [facility] Start: 2007 Screening for malign ant neoplasm of colon [facility] Start: 2002 Diabetes Screening Diabetes Screenin g [facility] Start: 2002 Screening for malign ant neoplasm of colon [facility] Start: 01-21-1992 Lipid panel Lipid Screening [facility] Start: 1975 Anxiety Screening Anxiety Screening [facility] Start: 1975 Depression Screening Depression Scre ening [facility] Start: 1975 Hepatitis C antibody , confirmatory test Hepatitis C Screening [facility] Start: 1975 Hepatitis C screening Hepatitis C Sc ramona [facility] Start: 01-21-1972 HIV screening HIV Screening [facility] Start: 1969 Adolescent depressio n screening assessment Depression Screening (PHQ9) [facility] Start: 01-21-1960 History and physical examination, annual for health maintenance Wellness Visit [facility] Start: 1957 Abdominal aortic aneurysm screening Abdominal Aortic Aneurysm Screening [facility] Start: 1955 Prostate specific antigen measurement PSA Level [facility] Start: 1955 Tetanus vaccination Tetanus: Every 1 0yrs [facility] Serum testosterone measurement [facility] Testosterone Free [Mass/volume] in Serum or Plasma [facility] Testosterone measurement [facility] Immunizations Immunization Date Immunization Notes Care Provider Roopa [email or web address] 05-27-2020 Pfizer SARS-CoV-2 Vaccination Tamra Cruz [facility] Payers Date Payer Category Payer Unknown [id number] 2023 Self-pay [id number] 2023 Unknown [id number] 2022 Medicare MEDICARE [id number] 2022 Medicare [id number] 2012 Unknown [id number] 1955 Unknown [id number] Unknown [id number] Unknown [id number] Unknown [id number] Unknown [id number] Unknown [id number] Social History Date Type Detail Facility Tobacco smoking stat us NHIS Unknown if ever smoked [facility] Start: 1955 Sex Assigned At Not on file [facility] Exposure to SARS-CoV -2 (event) Not sure [facility] Start: 01-05-2013 End: 01-05-2013 Tobacco smoking status NHIS Unknown if ever smoked [facility] Start: 1955 Sex Assigned At Male [facility] Start: 01-05-2013 End: 07-17-2024 Tobacco smoking status NHIS Ex-smoker (finding) [facility] Start: 06-27-2024 Sex Male (finding) [facility] Start: 03-21-1986 End: 03-21-1996 History of tobacco use Current smoker [facility] Start: 03-21-1986 End: 03-21-1996 History of tobacco use Cigarette Smoker [facility] Start: 07-17-2024 Alcoholic beverage intake Current drinker of alcohol (finding) [facility] Start: 07-17-2024 History of Social function [facility] Start: 07-17-2024 Tobacco use panel [facility] National Score (1-100), lower number is lower risk 56 [facility] Progress note 07-30-2024 Note Date & Type Note Facility 07-30-2024 Note HNO ID: [id number] Author: ANGIE PEREZ RN Service: ? Author Type: Registered Nurse Type: Progress Notes Filed: 07/30/2024 09:59 Note Text: AMBULATORY PATIENT EDUCATION NOTE READINESS TO LEARN COGNITIVE ABILITY: Alert and oriented MOTIVATION TO LEARN: Eager Interested FAMILY SUPPORT: Unable to assess - Family not present INSTRUCTION PROVIDED TO: Patient PATIENT LEARNS BEST BY: Individual Instruction Written Instruction - Hand-outs Verbal Instruction Multiple Methods FACTORS AFFECTING LEARNING: None PHYSICAL LIMITATIONS AFFECTING LEARNING: None LEARNING RESPONSE DIAGNOSIS: Hypogonadism in male METHOD OF INSTRUCTION: Teach Back Individual instruction Written instruction/Handouts Verbal instruction Demonstration/Hands on Learning PATIENT / FAMILY RESPONSE: Verbalizes understanding of: INFECTION MANAGEMENT-Signs and symptoms of an infection and importance of contacting the physician MEDICAL REGIMEN-Importance of following prescribed medical regimen PAIN MANAGEMENT-Effective strategies to manage pain in addition to pain medication RISK FACTORS-Unique risk factors related to their disease FOLLOW-UP PLAN: Patient instructed to call with any further issues; keep f/u appointment with Dr. Palacio SUPPLEMENTAL MATERIAL: Print-out from [employer] with information, instructions, and pictures (see attachment in 07/19/2024 [facility] message) REFERRAL (RECOMMENDATION): None Pt presents today for nurse visit to receive education regarding self-administration of IM testosterone to the thigh. He has previously self-administered testosterone subcutaneously, topically, and IM in the glute but never in the thigh. He just wanted to administer his first IM thigh injection in observation of a nurse to ensure that he was doing it correctly. Pt brings all supplies and medication with him to appointment. Verified Pt's name AND upon arrival. Updated med/allergy list. Pt completes appropriate steps to self-administer 40mg (0.2mL) of testosterone cypionate (200mg/mL) IM in his Rt lateral thigh at 90 degrees. Pt feels confident that he can complete these injections twice a week at home without problem. Guidance, support, and praise provided. Instructed Pt to reach out to office contact worker if he has any further questions and/or concerns; he voices understanding. Pt ambulatory to exit. Electronically Signed By Angie Perez RN in Department: ENDOCRINOLOGY [facility] Instructions 07-17-2024 Patient Instructions Note Date & Type Note Facility 07-17-2024 Vitaliy Moore MD - 07/17/2024 2:04 PM EDT Please do labs on after an overnight fast - no food or drinks in the morning except water on the morning of the lab draw Please switch taking Depo-testosterone IM rather than subcutaneous after the labs are done- we might make changes to dose on the basis of labs. Even if no changes made to dose, repeat labs in 3 months documented in this encounter [facility] Progress note 07-17-2024 Note Date & Type Note Facility 07-17-2024 Note HNO ID: [id number] Author: VITALIY PALACIO MD Service: ? Author Type: Physician Type: Progress Notes Filed: 07/21/2024 22:04 Note Text: [facility] Initial Clinic Visit Note History of Present Illness: Mr. Garzon is a 69 year old male here today at the request of SELF for evaluation, management, and treatment of hypogonadism: He was seen by Marine Safety Officer, Dr. Ramirez at the age of 19 or 20 years due to delayed secondary sexual characteristics, and underwent evaluate with diagnosis of hypogonadism Chromosomes are normal he reports. 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 Does not think he underwent MRI pituitary, but reports Xray of the head was done No reported altered sensation of smell He was started on TRT at the same age around 20 years of age. Was on TRT IM until 59 years, later switched to patches due to insurance issues, on which he was on for 5 years - switched back to IM 200 mg every 2 weeks He is currently managed for hypogonadism by his PCP since 1984. Recently changed PCP's and would like Endocrinology to take care of his hormonal issues He reports finding on his research that IM TRT raises Hb more, so he switched to gel. He did not like it, so switched back to IM formulation He reports his hemoglobin was high to 18 along with Hct, in addition to high cholesterol, high PSA. He also reports he had pain in leg lower extremity during that time Then through more research and reading through more articles, he found that SubQ has less risk of Hb elevation, and he started to take IM formulation as subcutaneous to lower Hct and Hb. He also donated blood to lower Hb multiple times. He still does this every 2 months He reports taking subcutaneous for about a year. No side effects - he is doing 40 mg two times weekly (because he could not get enough with taking 0.25 ml 2 times weekly). She was on enanthate as well and it was changed due to unknown reason Symptoms: No symptoms concerning. No whas normal secondary sexual characteristics He has no issues with sex drive or erections. Denied any opioid use, antifungal, antiseizure medications. No use of supplements reported Risk factors for Complications : History or Family history of Prostate Cancer : everyone in the family has prostate cancer Seen Urology and they are okay with the current testosterone doses and the PSA levels Race : no History of Breast Cancer : not known History of ORTIZ or suggestive of ORTIZ: a little bit of snoring Patient reports he never did labs aon fasting. 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 Cholecalciferol, Vitamin D3, 1,000 unit cap Take 1 capsule by mouth once daily. folic acid 1 mg tablet Take 1 tablet by mouth once daily. No current facility-administered medications on file prior to visit. ALLERGIES Allergen Reactions Cold Medications [O* Shortness of Breath FAMILY HISTORY Problem Relation Age of Onset Alcohol/Drug Mother Heart Paternal Grandfather Prostate Cancer Paternal Grandfather Vitals: BP 136/74 (BP Site: Right Arm, BP Position: Sitting, BP Cuff Size: Regular Adult) Pulse 101 Temp 37.3 ?C (99.1 ?F) (Temporal Artery) Ht 189.2 cm (6' 2.5) Wt 89.4 kg (197 lb) SpO2 98% BMI 24.95 kg/m? There is no height or weight on file to calculate BMI. Physical exam: General: WNWD, NAD, Extremities proportion: normal Eyes: conjunctivae are pink, and moist. No exopthalmos, lag, or stare Neck: The thyroid is normal, nontender, no adenopthy Lymphatic: no cervical or supraclavicular adenopathy Cardiovascular: regular rate and rhythm Respiratory: full sounds bilaterally with normal expansion Gastrointestinal: soft, non-tender, normal bowel sounds, no hepatosplenomegaly Musculoskeletal: normal muscle mass Spine: no kyphosis present, no lordosis present Skin: normal, no rashes present Neurologic: Visual Field defects, no tremors, no focal deficits, normal gait Pyschiatric: mood and affect are normal DATA REVIEW: Labs: these are few labs done at [facility]. Multiple labs scanned into [facility] since 2017 to current Testosterone, serum total (time unclear) 05/19/2018-395.61 ng/dL (197.7-694.19) 04/14/2020-234.59 07/11/2020-832.95 10/31/2020-766.72 ng/dL 04/17/2021- 775.02 09/17/2022-391.95 10/10 2022- 119.14 01/06/2023-199.86 12/08/23- 565.21 03/08/24- 354.16 (hct 49.1, hb 1 (more content not included)... [facility] History of Present illness Narrative 07-17-2024 Vitaliy Palacio MD - 07/17/2024 1:05 PM EDT Note Date & Type Note Facility 07-17-2024 History of Presen t illness Narrative [facility] Initial Clinic Visit Note History of Present Illness: Mr. Garzon is a 69 year old male here today at the request of SELF for evaluation, management, and treatment of hypogonadism: He was seen by Marine Safety Officer, Dr. Ramirez at the age of 19 or 20 years due to delayed secondary sexual characteristics, and underwent evaluate with diagnosis of hypogonadism Chromosomes are normal he reports. 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 Does not think he underwent MRI pituitary, but reports Xray of the head was done No reported altered sensation of smell He was started on TRT at the same age around 20 years of age. Was on TRT IM until 59 years, later switched to patches due to insurance issues, on which he was on for 5 years - switched back to IM 200 mg every 2 weeks He is currently managed for hypogonadism by his PCP since 1984. Recently changed PCP's and would like Endocrinology to take care of his hormonal issues He reports finding on his research that IM TRT raises Hb more, so he switched to gel. He did not like it, so switched back to IM formulation He reports his hemoglobin was high to 18 along with Hct, in addition to high cholesterol, high PSA. He also reports he had pain in leg lower extremity during that time Then through more research and reading through more articles, he found that SubQ has less risk of Hb elevation, and he started to take IM formulation as subcutaneous to lower Hct and Hb. He also donated blood to lower Hb multiple times. He still does this every 2 months He reports taking subcutaneous for about a year. No side effects - he is doing 40 mg two times weekly (because he could not get enough with taking 0.25 ml 2 times weekly). She was on enanthate as well and it was changed due to unknown reason Symptoms: No symptoms concerning. No whas normal secondary sexual characteristics He has no issues with sex drive or erections. Denied any opioid use, antifungal, antiseizure medications. No use of supplements reported Risk factors for Complications : History or Family history of Prostate Cancer : everyone in the family has prostate cancer Seen Urology and they are okay with the current testosterone doses and the PSA levels Race : no History of Breast Cancer : not known History of ORTIZ or suggestive of ORTIZ: a little bit of snoring Patient reports he never did labs aon fasting. 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 Cholecalciferol, Vitamin D3, 1,000 unit cap Take 1 capsule by mouth once daily. folic acid 1 mg tablet Take 1 tablet by mouth once daily. No current facility-administered medications on file prior to visit. ALLERGIES Allergen Reactions Cold Medications [O* Shortness of Breath FAMILY HISTORY Problem Relation Age of Onset Alcohol/Drug Mother Heart Paternal Grandfather Prostate Cancer Paternal Grandfather Vitals: BP 136/74 (BP Site: Right Arm, BP Position: Sitting, BP Cuff Size: Regular Adult) Pulse 101 Temp 37.3 C (99.1 F) (Temporal Artery) Ht 189.2 cm (6' 2.5) Wt 89.4 kg (197 lb) SpO2 98% BMI 24.95 kg/m There is no height or weight on file to calculate BMI. Physical exam: General: WNWD, NAD, Extremities proportion: normal Eyes: conjunctivae are pink, and moist. No exopthalmos, lag, or stare Neck: The thyroid is normal, nontender, no adenopthy Lymphatic: no cervical or supraclavicular adenopathy Cardiovascular: regular rate and rhythm Respiratory: full sounds bilaterally with normal expansion Gastrointestinal: soft, non-tender, normal bowel sounds, no hepatosplenomegaly Musculoskeletal: normal muscle mass Spine: no kyphosis present, no lordosis present Skin: normal, no rashes present Neurologic: Visual Field defects, no tremors, no focal deficits, normal gait Pyschiatric: mood and affect are normal DATA REVIEW: Labs: these are few labs done at [facility]. Multiple labs scanned into [facility] since 2017 to current Testosterone, serum total (time unclear) 05/19/2018-395.61 ng/dL (197.7-694.19) 04/14/2020-234.59 07/11/2020-832.95 10/31/2020-766.72 ng/dL 04/17/2021- 775.02 09/17/2022-391.95 10/10 2022- 119.14 01/06/2023-199.86 12/08/23- 565.21 03/08/24- 354.16 (hct 49.1, hb 16.2, RBC 5.8) 02/02/2023 FSH 6.7 mIU/mL (0.7-10.8) LH 1.5 (1.2 to 10.6 mIU/mL) 06/23/24: PSA, total 6.18 ng/mL (0.0-4.0) 06/09/2023 PSA 5.04 ng/mL Hematocrit 47.3 Hemoglobin 15.2 RBC 5.36 12/08/2023 Hematocrit 46.7 Hemoglobin 15.4 RBC 5.54 04/23/2022 Hematocrit 54.7 (40-54) RBC 6.12 (4.6-6.2) Hemoglobin 18.9 g/dL (13.0-16.5) PSA 03/09/2018 2.11 ng/mL PSA Total 01/06/2023 8.21 PSA total, ultrafilt 08/24/23 - 5.04 ng/ml Free PSA 1.62 PSA, free % 32.1 04/14/2020-vitamin D 25-hydroxy 17.6 ng/mL DEXA: None available Assessment and Plan: Rancho Garzon is a 69 year old male who presents for evaluation of hypogonadism. I discussed with him that the formulation to be used intramuscularly might not get absorbed well when used subcu. This could be probably why his labs are never consistent despite taking same dose for a long time. Also he did not do labs on fasting Reports for obese individuals the medication although injected IM might go only skin deep, so that is okay for him to take subq. I discussed I usually given different needles for people who are obese and need TRT No reason to do FSH, LH as was being checked. Total PSA, free PSA checked and was seen by Urology and was told this is okay to continue. He also donates blood, every 2 months. to keep Hematocrit down. So again probably taking IM formulation as subcu is not the reason why his Hct is down from >54 I reviewed 2 options for the TRT, as he does not want to use gels. Subcutaneous- enanthate/Xyosted- reviewed this might be expensive and might not be approved by insurance but can try- he reports this will not be approved, as he tried this in the past Use the current formulation IM rather than using it subcu He would like to go for the second option. Advised to do labs on fasting at 8 am on before injection (takes medication on ). Based on results might make dose adjustments. If dose change made or not, he will change the route of administration to IM. I will also give script for needles at that time Discussed repeating labs again in 3 months, and follow up in 3.5 to 4 months I spent a total of 63 minutes on the date of the service which included preparing to see the patient, [id number] patient care, completing clinical documentation, obtaining and/or reviewing separately obtained history, performing a medically appropriate examination, counseling and educating the patient/family/caregiver, ordering medications, tests, or procedures, independently interpreting results (not separately reported), and communicating results to the patient/family/caregiver. Vitaliy Palacio MD July 17, 2024 1:05 PM documented in this encounter [facility] Evaluation note Note Date & Type Note Facility Evaluation note No assessment information availa [facility] Work Phone: Evaluation note Note Date & Type Note Facility Evaluation note Diagnosis Hypogonadism in male- Primary documented in this encounter [facility] Reason for referral (narrative) Note Date & Type Note Facility Reason for referral (narrative) No reason for referral information available [facility] Work Phone: Advance Directives No Advanced Directives Records FoundDocuments on File Type Date Recorded 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 Advance Directives and Livin g Will 05/22/2020 12:00 AM Summary Purpose Family History No Family History Records FoundNo Family History Records FoundNo Family History Records Found Chief Complaint and Reason for Visit Chief Complaint HEMATURIA Additional Source Comments (unrecognized sect ion and content) No Status Records FoundNo Status Records FoundNo Status Records Found INFORMATION SOURCE (unrecogn ized section and content) DATE CREATED AUTHOR 06/19/2020 [facility] DATE CREATED AUTHOR AUTHOR'S ORGANIZ ATION 07/08/2024 [facility] DATE CREATED AUTHOR AUTHOR'S ORGANIZ ATION 07/30/2024 [facility] Goals (unrecognized section and content) Goals may be documented in a n alternate sectionGoals may be documented in an alternate sectionGoals may be documented in an alternate sectionGoals may be documented in an alternate sectionGoals may be documented in an alternate sectionGoals may be documented in an alternate sectionGoals may be documented in an alternate sectionGoals may be documented in an alternate sectionGoals may be documented in an alternate section Care Teams (unrecognized sec tion and content) Team Status: Active Member Role Status Dates Dr. Jere Vinson MD Family Provider Active Dr. Jere Vinson MD Primary Care Provider Active Team Status: Inactive Member Role Status Dates Dr. Jere Vinson MD Primary Care Provi curtis, Attending Provider, Referring Provider Active Team Status: Inactive Member Role Status Dates Dr. Jere Vinson MD Primary Care Provider Active Jere MARTEL Attending Provider Active Team Status: Inactive Member Role Status Dates Dr. Jere Vinson MD Primary Care Provider, Attending Provider Active Team Status: Inactive Member Role Status Dates Dr. Jere Vinson MD Primary Care Provider Active Dr. Rikki Aceves MD Attending Provider, Referr ing Provider Active Team Status: Inactive Member Role Status Dates Dr. Jere Vinson MD Primary Care Provider Active Start: March 08, 2024 End: March 08, 2024 Dr. Jere Vinson MD Attending Provider Active Start: March 08, 2024 End: March 08, 2024 Dr. Jere Vinson MD Referring Provider Active Start: March 08, 2024 End: March 08, 2024 Team Status: Inactive Member Role Status Dates Dr. Jere Vinson MD Primary Care Provider Active Start: June 22, 2024 End: June 22, 2024 Dr. Jere Vinson MD Attending Provider Active Start: June 22, 2024 End: June 22, 2024 Dr. 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 Start Date End Date Jere Vinson MD [address] [facility] [address] [place] [address] PCP - General Family Medicine 07/17/24 Source Comments (unrecognize d section and content) In the event this informatio n is protected by the Federal Confidentiality of Alcohol and Drug Abuse Patient Records regulations: The Federal rules restrict any use of the information to criminally investigate or prosecute any alcohol or drug abuse patient.[facility] the event this information is protected by the Federal Confidentiality of Alcohol and Drug Abuse Patient Records regulations: The Federal rules restrict any use of the information to criminally investigate or prosecute any alcohol or drug abuse patient.[facility] Reason for Visit (unrecogniz ed section and content) Reason Comments Hypogonadism Tst all his life, 4 different types, wants to switch to endo FOR RECORDS PERTAINING TO PATIENTS WHO ARE OR HAVE BEEN ENROLLED IN A CHEMICAL DEPENDENCY/SUBSTANCEABUSE PROGRAM, SOME INFORMATION MAY BE OMITTED. This clinical summary was aggregated from multiple sources. Caution should be exercised in using it in the provision of clinical care. This summary normalizes information from multiple sources, and as a consequence, information in this document may materially change the coding, format and clinical context of patient data. In addition, data may be omitted in some cases. CLINICAL DECISIONS SHOULD BE BASED ON THE PRIMARY CLINICAL RECORDS. [employer] provides no warranty or guarantee of the accuracy or completeness of information in this document.
== END | disposition home or self-care (01) ==
LOC: MFPLAB 10:13
PROVIDERS: PCP Family Medicine; Referring Provider Family Medicine; Visit Provider Family Medicine
DX: I10 Essential (primary) hypertension (principal)
CPT/HCPCS: 36415; 80053